=== PATIENT | male | born 1965 | race Caucasian/White ===

== ENCOUNTER 2018-09-04 10:18 | Inpatient (IN) | payer OTHER, MEDICARE ==
[~2018-09-04] VITALS: Ht 167.6 cm; Wt 113.5 kg
[2018-09-04 11:10] LABS: BASOPHILS ABSOLUTE AUTO 0.06 K/mm3 (0.00-0.23); BASOPHILS PERCENT AUTO 1 % (0-2); EOSINOPHILS ABSOLUTE AUTO 0.12 K/mm3 (0.00-0.68); EOSINOPHILS PERCENT AUTO 2 % (0-6); Hematocrit 44.4 % (37.0-53.0); Hemoglobin 14.9 g/dL (13.5-17.5); IMMATURE GRAN ABSOLUTE AUTO 0.04 K/mm3 (0.00-0.10); IMMATURE GRAN PERCENT AUTO 1 % (0-1); LYMPHOCYTES ABSOLUTE AUTO 1.41 K/mm3 (0.84-5.20); LYMPHOCYTES PERCENT AUTO 20 % (21-46); MONOCYTES ABSOLUTE AUTO 0.51 K/mm3 (0.16-1.47); MONOCYTES PERCENT AUTO 7 % (4-13); Mean Corpuscular HGB 28.6 pg (26.0-34.0); Mean Corpuscular HGB Conc 33.6 g/dL (31.5-36.5); Mean Corpuscular Volume 85 fL (80-100); Mean Platelet Volume 9.8 fL (9.1-12.4); NEUTROPHILS ABSOLUTE AUTO 4.95 K/mm3 (1.96-9.15); NEUTROPHILS PERCENT AUTO 70 % (41-73); Platelet Count 172 K/mm3 (150-400); RDW Coefficient Variation 13.7 % (11.7-14.2); RDW Standard Deviation 42.6 fL (35.1-46.3); Red Blood Cell Count 5.21 M/mm3 (4.30-5.90); White Blood Cell Count 7.09 K/mm3 (4.00-11.30)
[2018-09-04 11:23] LABS: Alanine Aminotransfer (ALT/SGP 28 U/L (12-78); Albumin, Blood 3.8 g/dL (3.4-5.0); Albumin/Globulin Ratio 1.2 (0.8-1.8); Alk Phos 117 U/L (50-136); Anion Gap 6 mmol/L (6-16); Aspartate Aminotrans (AST/SGOT 18 U/L (12-37); Bilirubin, Total 0.5 mg/dL (0.1-1.0); Blood Urea Nitrogen 14 mg/dL (8-24); CO2, Blood 26 mmol/L (21-32); Calcium, Blood 8.6 mg/dL (8.5-10.1); Chloride, Blood 105 mmol/L (98-108); Creatinine, Blood 0.93 mg/dL (0.60-1.20); Globulin, Blood 3.3 g/dL (2.2-4.0); Glomerular Filtration Rate >60 (60-); Glucose, Blood 192 mg/dL (70-99); Sodium, Blood 137 mmol/L (136-145); Total Protein, Blood 7.1 g/dL (6.4-8.2); Troponin I 0.235 ng/mL (0.000-0.040)
[2018-09-04] MEDS ORDERED: ASPI325EC PO (12:18)
[2018-09-04] MEDS ORDERED: FISH OIL 1,001000 MG PO (12:19)
[2018-09-04] MEDS ORDERED: TRULICITY1.5 MG/0.5 SC (12:19)
[2018-09-04] MEDS ORDERED: NOVOLOG FL100 UNIT/2 SC (12:20)
[2018-09-04] MEDS ORDERED: ATOR40TA PO (12:27)
[2018-09-04] MEDS ORDERED: NOVOLOG FL100 UNIT/1 SC (12:29)
[2018-09-04] MEDS ORDERED: METO100ER PO (12:30)
[2018-09-04] MEDS ORDERED: OMEP20ER PO (12:31)
[2018-09-04] MEDS ORDERED: TAMS.4ER PO (12:32)
[2018-09-04] MEDS ORDERED: IBUP400 PO (12:33)
[2018-09-04] MEDS ORDERED: INSULANPEN SC (12:43)
[2018-09-04 14:35] LABS: Cholesterol 174 mg/dL (50-200); HDL Cholesterol 29 mg/dL (>39); LDL/HDL RATIO 3.3; Low Density Lipoprotein Chol 97 mg/dL (0-110); Triglycerides 240 mg/dL (30-160); Very Low Density Lipoprot Chol 48 mg/dL (6-32)
[2018-09-04 14:49] LABS: Troponin I 0.892 ng/mL (0.000-0.040)
--- NOTE | 2018-09-04 15:50 | NUR ---
PATIENT ADMIT THE PATIENT WAS ADMITTED TO THE MEDICAL FLOOR, ROOM #332 FROM THE E/R AT 1430. THE PATIENT CAME TO THE FLOOR VIA WHEEL CHAIR. THE PATIENT IS A&O X4, VITALS WNL AND WITH CLEAR, BUT DIMINISHED LUNG SOUNDS. THE PATIENT'S TROPONIN WAS A CRITICAL HIGH VALUE AT 0.892 AND HIS DOCTOR WAS CALLED. THE PATIENT HAD A CARDIO CONSULT WITH DOCTOR MADISON. THE PATIENT IS GOING TO THE FABRICATION LEAD SOON, WILL CONTINUE TO MONITOR.
--- NOTE | 2018-09-04 16:54 | NUR ---
PATIENT TRANSFER THE PATIENT WAS TAKEN TO THE CATH [id number], AND IS BEING TRANSFERRED TO PCU AFTER HIS PROCEDURE. REPORT WAS CALLED TO PCU NURSE KRISTINA AT 1650.
--- NOTE | 2018-09-05 01:55 | NUR ---
ASSUMED CARE OF PATIENT AT APPROXIMATELY 1900 FROM KRISTINA Solorzano RN. PATIENT ARRIVED TO UNIT BEFORE SHIFT CHANGE; S/P ANGIOGRAM; ACCESS TO RIGHT RADIAL AND RIGHT FEMORAL. SITES WITH SOME DRY BLOOD NOTED; NO S/S OF ACTIVE BLEEDING, HEMATOMA OR BRUISING NOTED. DR. MADISON BEDSIDE WITH PATIENT DURING BEDSIDE REPORT; ELEVATED HOB UP TO 10 DEGREES; PATIENT REPORTS TO DR. MADISON THAT HE HAS A "ECHO" OF CHEST PAIN. PATIENT DENIES NUMBNESS, TINGLING, DIZZINESS AND NAUSEA AT START OF SHIFT. CALLED TO ROOM AND PATIENT REPORTS HE HAS NUMBNESS ON TOP OF FEET 30 MINUTES PRIOR TO PATIENT WAS TO AMBULATE. PATIENT REPORTS AFTER HE AMBUALTED HE FELT BETTER AND NUMBNESS WAS GONE. 10CC OF AIR REMOVED FROM TR BAND; ARMBOARD IN PLACE; NO S/S OF BLEEDING OR HEMATOMA NOTED; SOFT AND NONTENDER. PATIENT REPORTS HE HAS SPINAL STIMULATOR BEDSIDE. PATIENT REPORTS HE HAS CHRONIC BACK PAIN THAT IS TOLERABLE AT THIS TIME; REPORTS PAIN MEDIATION DOESNT WORK ON HIM. PIV S/L. PATIENT CURRENTLY RESTING IN BED; CALL LIGHT IN REACH; BED IN LOWEST POSISTION; WILL CONTINUE TO MONITOR AND ASSESS UNTIL END OF SHIFT.
[2018-09-05 04:31] LABS: BASOPHILS ABSOLUTE AUTO 0.01 K/mm3 (0.00-0.23); BASOPHILS PERCENT AUTO 0 % (0-2); EOSINOPHILS PERCENT AUTO 0 % (0-6); Hematocrit 40.1 % (37.0-53.0); Hemoglobin 13.3 g/dL (13.5-17.5); IMMATURE GRAN ABSOLUTE AUTO 0.02 K/mm3 (0.00-0.10); IMMATURE GRAN PERCENT AUTO 0 % (0-1); LYMPHOCYTES PERCENT AUTO 8 % (21-46); MONOCYTES ABSOLUTE AUTO 0.73 K/mm3 (0.16-1.47); MONOCYTES PERCENT AUTO 6 % (4-13); Mean Corpuscular HGB 29.2 pg (26.0-34.0); Mean Corpuscular HGB Conc 33.2 g/dL (31.5-36.5); NEUTROPHILS ABSOLUTE AUTO 10.37 K/mm3 (1.96-9.15); NEUTROPHILS PERCENT AUTO 86 % (41-73); Platelet Count 201 K/mm3 (150-400); RDW Standard Deviation 44.2 fL (35.1-46.3); Red Blood Cell Count 4.56 M/mm3 (4.30-5.90); White Blood Cell Count 12.13 K/mm3 (4.00-11.30)
[2018-09-05 04:32] LABS: Mean Corpuscular Volume 88 fL (80-100)
[2018-09-05 04:51] LABS: Anion Gap 8 mmol/L (6-16); Blood Urea Nitrogen 18 mg/dL (8-24); Bun/Creatinine Ratio 18.1 (12.0-20.0); CO2, Blood 24 mmol/L (21-32); Calcium, Blood 8.6 mg/dL (8.5-10.1); Chloride, Blood 106 mmol/L (98-108); Creatinine, Blood 0.99 mg/dL (0.60-1.20); Glomerular Filtration Rate >60 (60-); Glucose, Blood 260 mg/dL (70-99); Potassium, Blood 3.9 mmol/L (3.5-5.5); Sodium, Blood 138 mmol/L (136-145)
--- NOTE | 2018-09-05 17:19 | NUR ---
SHIFT SUMMARY PT RESTING IN BED AND CHAIR THROUGHOUT THE DAY. VSS. ALERT AND ORIENTED X3. C/O 05/10 HEADACHE PAIN, MEDICATED WITH PRN PAIN MEDS. AMBULATING IN HALLWAYS WITHOUT PROBLEMS. RIGHT WRIST SOFT, NO BLEED OR HEMATOMA, OPSITE DRSG CDI. RIGHT GROIN SOFT, NO BLEED OR HEMATOMA, OPSITE DRSG CDI. LUNG SOUNDS CLEAR, DIMINISHED BASES. NSR RATE 90s ON TELEMETRY. WILL CONTINUE TO MONITOR.
--- NOTE | 2018-09-06 01:14 | NUR ---
ASSUMED CARE OF PATIENT AT APPROXIMATELY 1905 FROM VESNA Solorzano RN. PATIENT ALERT AND ORIENTED X4; INDEPENDENT IN ROOM; AMBULATED IN HALLWAYS SHORTLY AFTER SHIFT CHANGE. ANGIO ACCESS SITES; RIGHT RADIAL AND RIGHT FEMORAL WNL; SITES WITH SOME DRY BLOOD NOTED; NO S/S OF ACTIVE BLEEDING, HEMATOMA OR BRUISING NOTED. PATIENT COMPAINS THAT HE IS BORED. PATIENT REPORTS THAT SINCE APPROXIMATELY 1000 AM HE HAS BEEN HAVING PRESSURE BY SHOULDERS OFF AND ON LASTING ABOUT 10-20 MINUTES; NOT PAINFUL; PATIENT REPORTS HE WOULD WATCH TV AND "REALIZED IT'S GONE"; PATIENT REPORTS THAT HE HAD BEEN HAVING PAIN BETWEEN HIS SHOULDER BLADES OFTEN THAT IS NOW GONE. PATIENT COMPLAINS OF A HEADACHE; REPORTS HEADACHE MOST OF THE DAY; MEDICATED PER EMAR; PATIENT REPORTS TYLENOL HELPED EARLIER IN THE DAY; PATIENT DENIES NUMBNESS, TINGLING, DIZZINESS AND NAUSEA. PATIENT REPORTS HE HAS SPINAL STIMULATOR BEDSIDE. PATIENT REPORTS HE HAS CHRONIC BACK PAIN THAT IS TOLERABLE AT THIS TIME; REPORTS PAIN MEDIATION DOESNT WORK ON HIM. PIV S/L. NSR ON TELE; OXYGEN SATURATION ABOVE 90% ON ROOM AIR; USES CPAP AT NIGHT. PATIENT CURRENTLY RESTING IN BED; CALL LIGHT IN REACH; BED IN LOWEST POSISTION; WILL CONTINUE TO MONITOR AND ASSESS UNTIL END OF SHIFT.
--- NOTE | 2018-09-06 06:19 | NUR ---
NO ACUTE CHANGES TO REPORT. PATIENT COMPLAINED OF HEADACHE THIS MORNING; MEDICATED PER EMAR; PATIENT SLEPT ABOUT EIGHT HOURS. VSS. WILL CONTINUE TO MONITOR AND ASSESS UNTIL END OF SHIFT.
[2018-09-06] MEDS ORDERED: Aspirin EC81 MG PO (10:41)
[2018-09-06] MEDS ORDERED: Isosorbide Mono30 MG PO (10:41)
[2018-09-06] MEDS ORDERED: BRILINTA90 MG PO (10:42)
[2018-09-06] MEDS ORDERED: LOSA50 PO (10:42)
--- NOTE | 2018-09-06 13:17 | NUR ---
DISCHARGE PT EDUCATED ON AND RECEIVED PRINTED DISCHARGE INSTRUCTIONS AND VERBALIZED AN UNDERSTANDING. PT SIGNED CONTRACTS RELATED TO ANTICOAGS, RADIAL, AND FEMORAL SITE CARE. RECEIVED DIETARY INFORMATION. [facility] IN [facility] ER TO FILL NEW MEDICATIONS FOR PT TO PICK AFTER LEAVING HERE. VERIFIED WITH [facility] THAT THEY RECEIV[facility] FAX AND PT WILL HAVE MEDICATIONS FILLED TODAY. IV DC'D. PT GATHERED ALL PERSONAL BELONGINGS AND WAITING FOR RIDE HOME.
== END 2018-09-06 14:01 | disposition home or self-care (01) | DRG 247 ==
LOC: ER 10:18 → MEDS 10:19 → PCU 14:38 → MEDS 16:45 → PCU 17:59
PROVIDERS: Emergency Medicine; ADMIT Internal Medicine
PROC: B2111ZZ Fluoroscopy of Multiple Coronary Arteries using Low Osmolar Contrast (ICD-10-PCS; principal; 2018-09-04)
PROC: 027135Z Dilation of Coronary Artery, Two Arteries with Two Drug-eluting Intraluminal Devices, Percutaneous Approach (ICD-10-PCS; 2018-09-04)
PROC: 4A023N7 Measurement of Cardiac Sampling and Pressure, Left Heart, Percutaneous Approach (ICD-10-PCS; 2018-09-04)
DX: I21.4 Non-ST elevation (NSTEMI) myocardial infarction (principal); Z68.41 Body mass index [BMI] 40.0-44.9, adult; K21.9 Gastro-esophageal reflux disease without esophagitis; N40.0 Benign prostatic hyperplasia without lower urinary tract symptoms; F32.9 Major depressive disorder, single episode, unspecified; Z87.891 Personal history of nicotine dependence; E11.9 Type 2 diabetes mellitus without complications; I10 Essential (primary) hypertension; E78.5 Hyperlipidemia, unspecified; E66.01 Morbid (severe) obesity due to excess calories; Z96.89 Presence of other specified functional implants; Z79.4 Long term (current) use of insulin
CPT/HCPCS: 36415; 71260; 80048; 80053; 80061; 82947; 83036; 84484; 85025; 93005; 93010; 93454; 94660; 94762; 96372; 99152; 99153; 99285-25; A9270; C1725; C1760; C1769; C1874; C1887; C1894; C8929; C9600; C9601; G0378; J1644; J1650; J1815; J2250; J3010; J3246; J7030; Q9957; Q9967

== ENCOUNTER 2018-10-13 21:24 | Emergency (ER) | payer MEDICARE ==
[~2018-10-13] VITALS: Ht 167.6 cm; Wt 113.4 kg
[~2018-10-13 21:24] MED LIST: ASPI325EC PO; ATOR40TA PO; Aspirin EC81 MG PO; BRILINTA90 MG PO; FISH OIL 1,001000 MG PO; IBUP400 PO; INSULANPEN SC; Isosorbide Mono30 MG PO; LOSA50 PO; METO100ER PO; NOVOLOG FL100 UNIT/1 SC; NOVOLOG FL100 UNIT/2 SC; OMEP20ER PO; TAMS.4ER PO; TRULICITY1.5 MG/0.5 SC
[2018-10-13 23:25] LABS: BASOPHILS ABSOLUTE AUTO 0.06 K/mm3 (0.00-0.23); BASOPHILS PERCENT AUTO 1 % (0-2); EOSINOPHILS ABSOLUTE AUTO 0.14 K/mm3 (0.00-0.68); EOSINOPHILS PERCENT AUTO 2 % (0-6); Hematocrit 40.9 % (37.0-53.0); Hemoglobin 13.5 g/dL (13.5-17.5); IMMATURE GRAN ABSOLUTE AUTO 0.03 K/mm3 (0.00-0.10); IMMATURE GRAN PERCENT AUTO 0 % (0-1); LYMPHOCYTES ABSOLUTE AUTO 1.97 K/mm3 (0.84-5.20); LYMPHOCYTES PERCENT AUTO 24 % (21-46); MONOCYTES ABSOLUTE AUTO 0.76 K/mm3 (0.16-1.47); MONOCYTES PERCENT AUTO 9 % (4-13); Mean Corpuscular HGB 28.6 pg (26.0-34.0); Mean Corpuscular Volume 87 fL (80-100); NEUTROPHILS ABSOLUTE AUTO 5.12 K/mm3 (1.96-9.15); NEUTROPHILS PERCENT AUTO 63 % (41-73); Platelet Count 207 K/mm3 (150-400); RDW Coefficient Variation 14.4 % (11.7-14.2); RDW Standard Deviation 45.8 fL (35.1-46.3); Red Blood Cell Count 4.72 M/mm3 (4.30-5.90); White Blood Cell Count 8.08 K/mm3 (4.00-11.30)
[2018-10-13 23:41] LABS: Alanine Aminotransfer (ALT/SGP 34 U/L (12-78); Albumin, Blood 3.9 g/dL (3.4-5.0); Albumin/Globulin Ratio 1.1 (0.8-1.8); Alk Phos 120 U/L (50-136); Anion Gap 10 mmol/L (6-16); Aspartate Aminotrans (AST/SGOT 16 U/L (12-37); Bilirubin, Total 0.3 mg/dL (0.1-1.0); Blood Urea Nitrogen 21 mg/dL (8-24); Bun/Creatinine Ratio 19.4 (12.0-20.0); CO2, Blood 22 mmol/L (21-32); Calcium, Blood 8.6 mg/dL (8.5-10.1); Chloride, Blood 106 mmol/L (98-108); Creatinine, Blood 1.08 mg/dL (0.60-1.20); Globulin, Blood 3.6 g/dL (2.2-4.0); Glomerular Filtration Rate >60 (60-); Glucose, Blood 276 mg/dL (70-99); Potassium, Blood 3.8 mmol/L (3.5-5.5); Sodium, Blood 138 mmol/L (136-145); Total Protein, Blood 7.5 g/dL (6.4-8.2); Troponin I <0.015 ng/mL (0.000-0.040)
[2018-10-14] MEDS ORDERED: METF500 PO (01:24)
== END 2018-10-14 02:34 | disposition home or self-care (01) ==
LOC: ER 21:24
PROVIDERS: Emergency Medicine
DX: R07.9 Chest pain, unspecified (principal); Z88.8 Allergy status to other drugs, medicaments and biological substances; Z79.899 Other long term (current) drug therapy; Z79.4 Long term (current) use of insulin; Z79.82 Long term (current) use of aspirin; E11.9 Type 2 diabetes mellitus without complications; Z87.891 Personal history of nicotine dependence
CPT/HCPCS: 36415; 71046; 80053; 83690; 84484; 85025; 93005; 93010; 99285-25

== ENCOUNTER 2018-12-07 13:18 | Observation (INO) | payer OTHER ==
[~2018-12-07] VITALS: Ht 167.6 cm; Wt 111.8 kg
[~2018-12-07 13:18] MED LIST changes: +METF500 PO
[2018-12-07 13:58] LABS: BASOPHILS ABSOLUTE AUTO 0.07 K/mm3 (0.00-0.23); BASOPHILS PERCENT AUTO 1 % (0-2); EOSINOPHILS ABSOLUTE AUTO 0.24 K/mm3 (0.00-0.68); EOSINOPHILS PERCENT AUTO 3 % (0-6); Hematocrit 43.9 % (37.0-53.0); Hemoglobin 14.4 g/dL (13.5-17.5); IMMATURE GRAN ABSOLUTE AUTO 0.03 K/mm3 (0.00-0.10); IMMATURE GRAN PERCENT AUTO 0 % (0-1); LYMPHOCYTES ABSOLUTE AUTO 1.81 K/mm3 (0.84-5.20); LYMPHOCYTES PERCENT AUTO 20 % (21-46); MONOCYTES ABSOLUTE AUTO 0.84 K/mm3 (0.16-1.47); MONOCYTES PERCENT AUTO 9 % (4-13); Mean Corpuscular HGB 28.5 pg (26.0-34.0); Mean Corpuscular HGB Conc 32.8 g/dL (31.5-36.5); Mean Corpuscular Volume 87 fL (80-100); Mean Platelet Volume 9.6 fL (9.1-12.4); NEUTROPHILS ABSOLUTE AUTO 6.02 K/mm3 (1.96-9.15); NEUTROPHILS PERCENT AUTO 67 % (41-73); Platelet Count 191 K/mm3 (150-400); RDW Coefficient Variation 14.2 % (11.7-14.2); RDW Standard Deviation 44.9 fL (35.1-46.3); Red Blood Cell Count 5.06 M/mm3 (4.30-5.90); White Blood Cell Count 9.01 K/mm3 (4.00-11.30)
[2018-12-07 14:25] LABS: Alanine Aminotransfer (ALT/SGP 28 U/L (12-78); Albumin, Blood 3.7 g/dL (3.4-5.0); Albumin/Globulin Ratio 0.9 (0.8-1.8); Alk Phos 133 U/L (50-136); Anion Gap 7 mmol/L (6-16); Aspartate Aminotrans (AST/SGOT 19 U/L (12-37); Bilirubin, Total 0.5 mg/dL (0.1-1.0); Blood Urea Nitrogen 16 mg/dL (8-24); Bun/Creatinine Ratio 13.4 (12.0-20.0); CO2, Blood 25 mmol/L (21-32); Calcium, Blood 9.3 mg/dL (8.5-10.1); Chloride, Blood 104 mmol/L (98-108); Creatinine, Blood 1.19 mg/dL (0.60-1.20); Globulin, Blood 3.9 g/dL (2.2-4.0); Glomerular Filtration Rate >60 (60-); Glucose, Blood 253 mg/dL (70-99); Potassium, Blood 4.2 mmol/L (3.5-5.5); Sodium, Blood 136 mmol/L (136-145); Total Protein, Blood 7.6 g/dL (6.4-8.2); Troponin I <0.015 ng/mL (0.000-0.040)
[2018-12-07] MEDS ORDERED: TICA90TA PO (15:09)
[2018-12-07] MEDS ORDERED: AMLO10 PO (15:10)
[2018-12-07] MEDS ORDERED: Zantac150 MG PO (15:11)
[2018-12-07] MEDS ORDERED: NEBI10 (19:50)
--- NOTE | 2018-12-07 20:00 | NUR ---
ADMIT PT ARRIVES TO [facility] FROM ER VIA [facility] AT APPROXIMATELY 1945. PT IS AOX4. VSS. AMBULATES INDEPENDENTLY FROM [facility] TO HOSPITAL BED. PT DENIES CHEST PAIN AT THIS TIME. REPORTS THAT HE HAS HAD INERMITTENT PAIN TO L UPPER CHEST AREA EITHER DIRECTLY ABOVE THE NIPPLE OR APPROXIMATELY 3 INCHES LATERALLY FROM THAT AREA. PT REPORTS THAT THE PAIN FEELS LIKE SMALL "TWINGES THAT LAST FOR A FEW AT A TIME AND THEN GO AWAY AFTER A FEW MINUTES". PT REPORTS THAT THIS PAIN HAS BEEN HAPPENING ON AND OFF SINCE STENT PLACEMENT IN AUGUST, PAIN DOES NOT RADIATE ANYWHERE AND NOTHING MAKES IT BETTER OR WORSE PER PATIENT REPORT- STATES THAT HE TOOK 3 SL NITRO AT HOME PRIOR TO CALLING AMBULANCE WITH NO CHANGE TO PAIN. INITIAL TROPONIN IS NEGATIVE. AWAITING REPEAT LAB DRAW. PT ORIENTED TO ROOM AND CALL LIGHT SYSTEM. EDUCATED ON CALLING FOR ASSISTANCE. WILL CONTINUE WITH ADMISSION AND ASSESSMENT. BED IN LOW POSITION,CALL LIGHT IN REACH.
--- NOTE | 2018-12-07 23:02 | NUR ---
PROVIDER CONTACTED PT REQUESTING HOME MEDICATION, BYSTOLIC. PT STATES THAT PROVIDER IN ED ASKED FAMILY TO BRING IN HOME MEDICATION. PROVIDER CONTACTED AND ORDERS RECEIVED FOR HOME DOSE TO RESTART NOW- PROVIDER STATES THAT THEY WILL INPUT ORDER. WILL SEND MEDICATION TO PHARMACY FOR VERIFICATION.
--- NOTE | 2018-12-08 01:30 | NUR ---
PROVIDER CONTACTED PT CONTINUES TO REPORT HEADACHE PAIN. REFUSED SECONDARY MEDICATION, FENTANYL. PROVIDER CONTACTED AND ORDERS RECEIVED TO CHANGE ORDERS TO TYLENOL FROM Q6 TO Q4. WILL INPUT AND ADMINISTER NEEDED.
--- NOTE | 2018-12-08 06:08 | NUR ---
SHIFT SUMMARY PT HAS REMAINED AOX4 THROUGHOUT SHIFT. VSS. PLEASANT AND COOPERATIVE WITH CARE. PT HAS RESTED THROUGHOUT MUCH OF THE NIGHT WITH CPAP IN PLACE. O2 SATS HAVE REMAINED >90% ON RA OR CPAP WITH NO O2 BLEED IN. DENIES DYSPNEA. PT REPORTED THREE EPISODES OF "TWINGING CHEST PAIN" THAT LASTED LESS THAN A MINUTE A PIECE AND STOPPED ON THEIR OWN- DESCRIBES PAIN ALMOST ELECTRICAL IMPULSE FEELING. NO CHANGES NOTED TO TELEMETRY EVEN THROUGH CHEST PAIN EVENTS. PT MEDICATED FOR HEADACHE PAIN ONCE THAT DECREASED WITH ORDERED MEDICATIONS, BUT DID NOT GO AWAY. PT REFUSED SECONDARY PAIN MEDICATION WHEN OFFERED, STATES THAT "IT DOES NOT WORK FOR HIM". PT CONSISTANTLY TALKS OVER STAFF WHEN ATTEMPTING TO PROVIDE EDUCATION AND DOES NOT APPEAR TO GRASP FULL UNDERSTANDING OF CURRENT CONDITION OR RATIONALLE FOR ADMISSION. CARDIOLOGY CONSULT CALLED THIS AM TO ANSWERING SERVICE. NO OTHER CHANGES NOTED FROM INITIAL ASSESSMENT. WILL CONITNUE TO MONITOR AND REPORT TO ONCOMING SHIFT RN. BED IN LOW POSITION, CALL LIGHT IN REACH.
[2018-12-08] MEDS ORDERED: Tylenol325 MG PO (13:15)
[2018-12-08] MEDS ORDERED: NITR.4SL SL (13:16)
--- NOTE | 2018-12-08 14:45 | NUR ---
SHIFT SUMMARY PT ALERT AND ORIENTED. VS STABLE. PER CARDIOLOGY THIS AM PT OK TO DISCHARGE. IV REMOVED. [facility] ALL QUESTIONS ANSWERED. DISCHARGE INSTRUCTIONS PROVIDED. NO NEW MEDICATIONS. PT TAKEN OUT BY WHEELCHAIR.
== END 2018-12-08 14:46 | disposition home or self-care (01) ==
LOC: ER 13:18 → MEDS 13:19 → PCU 13:19 → MEDS 19:43 → PCU 19:43
PROVIDERS: Emergency Medicine; ADMIT Family Medicine
DX: R07.89 Other chest pain (principal); I25.10 Atherosclerotic heart disease of native coronary artery without angina pectoris; I25.2 Old myocardial infarction; E11.9 Type 2 diabetes mellitus without complications; I10 Essential (primary) hypertension; E78.5 Hyperlipidemia, unspecified; G47.33 Obstructive sleep apnea (adult) (pediatric); K21.9 Gastro-esophageal reflux disease without esophagitis; N40.0 Benign prostatic hyperplasia without lower urinary tract symptoms; F32.9 Major depressive disorder, single episode, unspecified; E66.01 Morbid (severe) obesity due to excess calories; Z90.49 Acquired absence of other specified parts of digestive tract; Z87.19 Personal history of other diseases of the digestive system; Z98.890 Other specified postprocedural states; Z79.82 Long term (current) use of aspirin; Z95.5 Presence of coronary angioplasty implant and graft; Z99.89 Dependence on other enabling machines and devices; Z79.899 Other long term (current) drug therapy; Z88.5 Allergy status to narcotic agent; Z88.8 Allergy status to other drugs, medicaments and biological substances; Z87.891 Personal history of nicotine dependence; Z68.41 Body mass index [BMI] 40.0-44.9, adult
CPT/HCPCS: 36415; 71046; 80053; 82947; 83690; 84484; 85025; 93005; 93010; 94660; 94762; 96372; 99285-25; A9270; G0378; J1650; J1815

== ENCOUNTER 2020-01-27 17:12 | Observation (INO) | payer OTHER, MEDICARE ==
[~2020-01-27] VITALS: Ht 167.6 cm; Wt 108.0 kg
[~2020-01-27 17:12] MED LIST changes: +AMLO10 PO; +BASAGLAR K100 UNIT/1 SC; +DOXY100 PO; -INSULANPEN SC; +NEBI10; +NITR.4SL SL; -NOVOLOG FL100 UNIT/1 SC; +NOVOLOG FL100 UNIT/3 SC; +TICA90TA PO; +Tylenol325 MG PO; +Zantac150 MG PO
[2020-01-27 17:47] LABS: BASOPHILS ABSOLUTE AUTO 0.06 K/mm3 (0.00-0.23); BASOPHILS PERCENT AUTO 1 % (0-2); EOSINOPHILS ABSOLUTE AUTO 0.15 K/mm3 (0.00-0.68); EOSINOPHILS PERCENT AUTO 3 % (0-6); Hematocrit 40.4 % (37.0-53.0); Hemoglobin 13.2 g/dL (13.5-17.5); IMMATURE GRAN ABSOLUTE AUTO 0.01 K/mm3 (0.00-0.10); IMMATURE GRAN PERCENT AUTO 0 % (0-1); LYMPHOCYTES ABSOLUTE AUTO 1.64 K/mm3 (0.84-5.20); LYMPHOCYTES PERCENT AUTO 28 % (21-46); MONOCYTES ABSOLUTE AUTO 0.55 K/mm3 (0.16-1.47); MONOCYTES PERCENT AUTO 10 % (4-13); Mean Corpuscular HGB 28.4 pg (26.0-34.0); Mean Corpuscular HGB Conc 32.7 g/dL (31.5-36.5); Mean Corpuscular Volume 87 fL (80-100); Mean Platelet Volume 9.5 fL (9.1-12.4); NEUTROPHILS ABSOLUTE AUTO 3.39 K/mm3 (1.96-9.15); NEUTROPHILS PERCENT AUTO 58 % (41-73); Platelet Count 199 K/mm3 (150-400); RDW Coefficient Variation 13.8 % (11.7-14.2); RDW Standard Deviation 43.7 fL (35.1-46.3); Red Blood Cell Count 4.64 M/mm3 (4.30-5.90)
[2020-01-27 18:06] LABS: Alanine Aminotransfer (ALT/SGP 39 U/L (12-78); Albumin, Blood 3.8 g/dL (3.4-5.0); Albumin/Globulin Ratio 1.1 (0.8-1.8); Alk Phos 127 U/L (50-136); Anion Gap 7 mmol/L (6-16); Aspartate Aminotrans (AST/SGOT 21 U/L (12-37); Bilirubin, Total 0.4 mg/dL (0.1-1.0); Blood Urea Nitrogen 16 mg/dL (8-24); Bun/Creatinine Ratio 13.1 (12.0-20.0); CO2, Blood 24 mmol/L (21-32); Calcium, Blood 8.7 mg/dL (8.5-10.1); Chloride, Blood 102 mmol/L (98-108); Creatinine, Blood 1.22 mg/dL (0.60-1.20); Globulin, Blood 3.4 g/dL (2.2-4.0); Glomerular Filtration Rate >60 (60-); Glucose, Blood 527 mg/dL (70-99); Potassium, Blood 4.1 mmol/L (3.5-5.5); Sodium, Blood 133 mmol/L (136-145); Total Protein, Blood 7.2 g/dL (6.4-8.2); Troponin I <0.015 ng/mL (0.000-0.040)
--- NOTE | 2020-01-27 23:59 | NUR ---
PATIENT IS A NEW ADMIT FROM THE ED. SBA TRANSFER FROM [facility] TO BED. IV FLUIDS FINISHED INFUSING FROM THE ED. AXOX 4 AND NPO AFTER MIDNIGHT FOR POSSIBLE STRESS TEST IN AM. DENIES CHEST PAIN AND N/V. RT IN ROOM AND PLACED PATIENT ON 2L O2 NC. WAS STATING 87% ON RA AND NOW 98%. TELEMETRY PLACED AND TECH REPORTS NSR 78. USING URINAL AT BEDSIDE. PATIENT ORIENTED TO ROOM AND CALL LIGHT SYSTEM. REPORTS HAD FLU VACCINE LAST MONTH. WILL CONTINUE TO MONITOR.
--- NOTE | 2020-01-28 00:05 | NUR ---
RT IN ROOM TO SETUP CPAP. STATING 90-93% ON CONTINUOUS PULSE OXIMETRY. TOOK MEDICATION WHOLE WITH WATER. RESTING IN BED WATCHING TV. CALL LIGHT IN REACH.
[2020-01-28 02:15] LABS: Hematocrit 39.9 % (37.0-53.0); Hemoglobin 13.2 g/dL (13.5-17.5); Mean Corpuscular HGB 28.4 pg (26.0-34.0); Mean Corpuscular HGB Conc 33.1 g/dL (31.5-36.5); Mean Corpuscular Volume 86 fL (80-100); Mean Platelet Volume 8.9 fL (9.1-12.4); Platelet Count 175 K/mm3 (150-400); RDW Coefficient Variation 13.7 % (11.7-14.2); RDW Standard Deviation 43.1 fL (35.1-46.3); Red Blood Cell Count 4.64 M/mm3 (4.30-5.90)
[2020-01-28 02:34] LABS: Anion Gap 6 mmol/L (6-16); Blood Urea Nitrogen 16 mg/dL (8-24); Bun/Creatinine Ratio 16.2 (12.0-20.0); CHOL/HDL RATIO 9.4; CO2, Blood 26 mmol/L (21-32); CPK Creatine Kinase 92 U/L (39-308); Calcium, Blood 8.3 mg/dL (8.5-10.1); Chloride, Blood 104 mmol/L (98-108); Cholesterol 253 mg/dL (50-200); Creatine Kinase MB 2.2 ng/mL (0.0-3.6); Creatine Kinase MB Index 2.4 (0.0-4.0); Creatinine, Blood 0.99 mg/dL (0.60-1.20); Glomerular Filtration Rate >60 (60-); Glucose, Blood 316 mg/dL (70-99); HDL Cholesterol 27 mg/dL (>39); LDL/HDL RATIO Unable to Calculate; Low Density Lipoprotein Chol Unable to Calculate mg/dL (0-110); Potassium, Blood 3.5 mmol/L (3.5-5.5); Sodium, Blood 136 mmol/L (136-145); Triglycerides 783 mg/dL (30-160); Troponin I 0.091 ng/mL (0.000-0.040); Very Low Density Lipoprot Chol Unable to Calculate mg/dL (6-32)
[2020-01-28 02:42] LABS: Creatine Kinase MB 2.3 ng/mL (0.0-3.6); Creatine Kinase MB Index 2.5 (0.0-4.0); Troponin I 0.089 ng/mL (0.000-0.040)
--- NOTE | 2020-01-28 03:18 | NUR ---
SHIFT SUMMARY PATIENT HAD NO ACUTE CHANGES OBSERVED. DENIES CHEST PAIN AND N/V. RT IN ROOM AND PUT PATIENT ON 2L O2 NC AFTER STATING 88% ON RA. AXO X 4 AND INDEPENDENT IN ROOM. PATIENT REPORTS HE FORGOT TO TAKE HIS INSULIN AND ED RN REPORTS CBG 527 ON ADMIT AND 437 ON TRANSFER. PATIENT CBG 316 AFTER SCHEDULE HUMALOG AND SEMGLEE STARTED. PIV REMAINS INTACT. MASTER PRINTER REPORTS NSR 78. RT BACK IN ROOM TO SETUP CPAP AND CONTINUOUS PULSE OXIMETRY. PATIENT STATING 90-93% O2. PATIENT REPORTS HE HAS STIMULATOR IN HIS BACK FOR PAIN RELIEF. NPO FOR POSSIBLE STRESS TEST IN MORNING. VSS/AFEBRILE. CALL LIGHT IN REACH. BED IN LOWEST POSITION. WILL CONTINUE TO MONITOR UNTIL DAY SHIFT NURSE ASSUMES CARE.
--- NOTE | 2020-01-28 10:16 | NUR ---
CALLED DR NUNEZ FOR BG COVERAGE FOR THIS PT THIS AM; PT GIVEN SHORT ACTING AND HOLD OFF THE LONG ACTING INSULIN PER . STILL AWAITS IF PT WILL HAVE STRESS TEST TODAY; TROPONIN ELAVATED. PT ALSO REPORTED CP OF 4/10; MILD PAIN ON L ARM AND CHEST; PT NSR @70S. PT REPORTED CP THAT COMES AND GO; AWARE AND WILL COORDINATE WITH CONDITIONING COACH THIS AM.
[2020-01-28 10:56] LABS: Creatine Kinase MB 2.3 ng/mL (0.0-3.6); Creatine Kinase MB Index 2.2 (0.0-4.0); Troponin I 0.267 ng/mL (0.000-0.040)
--- NOTE | 2020-01-28 12:40 | NUR ---
Echocardiogram completed.
--- NOTE | 2020-01-28 17:25 | NUR ---
SHIFT SUMMARY PT AOX4; CALLS APPROPRIATELY. PT STARTED ON STRESS TEST TODAY 01/27 AND TOMORROW; NPO AT MIDNIGHT AND NO CAFFEINE AFTER 8PM. PT WILL HAVE A CARDIOLOGY CONSULT TOMORROW AFTER THE TEST DUE TO ELAVATED TROPONIN. PT C/O CP OF 06/10 THAT COMES AND GO SINCE ADMISSION; NSR @70S; DR BARRAZA, AND AWAITS FOR PLAN WHEN THE PT SEE THE SAFETY COMPANION TOMORROW. BED IS IN THE LOWEST POSITION AND CALL LIGHTS WITHIN REACH.
[2020-01-29 04:36] LABS: BASOPHILS ABSOLUTE AUTO 0.06 K/mm3 (0.00-0.23); BASOPHILS PERCENT AUTO 1 % (0-2); EOSINOPHILS ABSOLUTE AUTO 0.14 K/mm3 (0.00-0.68); EOSINOPHILS PERCENT AUTO 3 % (0-6); Hematocrit 42.4 % (37.0-53.0); Hemoglobin 14.3 g/dL (13.5-17.5); IMMATURE GRAN ABSOLUTE AUTO 0.02 K/mm3 (0.00-0.10); IMMATURE GRAN PERCENT AUTO 0 % (0-1); LYMPHOCYTES ABSOLUTE AUTO 1.63 K/mm3 (0.84-5.20); LYMPHOCYTES PERCENT AUTO 30 % (21-46); MONOCYTES ABSOLUTE AUTO 0.64 K/mm3 (0.16-1.47); MONOCYTES PERCENT AUTO 12 % (4-13); Mean Corpuscular HGB 28.8 pg (26.0-34.0); Mean Corpuscular HGB Conc 33.7 g/dL (31.5-36.5); Mean Corpuscular Volume 85 fL (80-100); Mean Platelet Volume 8.9 fL (9.1-12.4); NEUTROPHILS ABSOLUTE AUTO 3.01 K/mm3 (1.96-9.15); NEUTROPHILS PERCENT AUTO 55 % (41-73); Platelet Count 169 K/mm3 (150-400); RDW Coefficient Variation 13.6 % (11.7-14.2); RDW Standard Deviation 41.8 fL (35.1-46.3); Red Blood Cell Count 4.97 M/mm3 (4.30-5.90)
[2020-01-29 04:52] LABS: Anion Gap 5 mmol/L (6-16); Blood Urea Nitrogen 15 mg/dL (8-24); Bun/Creatinine Ratio 18.4 (12.0-20.0); CO2, Blood 27 mmol/L (21-32); Calcium, Blood 8.9 mg/dL (8.5-10.1); Chloride, Blood 104 mmol/L (98-108); Creatinine, Blood 0.81 mg/dL (0.60-1.20); Glomerular Filtration Rate >60 (60-); Glucose, Blood 214 mg/dL (70-99); Potassium, Blood 3.5 mmol/L (3.5-5.5); Sodium, Blood 136 mmol/L (136-145)
--- NOTE | 2020-01-29 05:21 | NUR ---
PATIENT HAS BEEN AWAKE MOST OF THE NIGHT. NO FURTHER COMPLAINTS OF CHEST PAIN. NPO SINCE MIDNIGHT, NO CAFFINE SINCE 2200. NO ACUTE CHANGES. CALL LIGHT IN REACH. INDEPENDENT IN ROOM.
--- NOTE | 2020-01-29 13:58 | NUR ---
PATIENT BEGAN TO COMPLAIN OF SOME CHEST PAIN JUST PRIOR TO 1300. ADMINISTERED SCHEDULED IMDUR AND PRN NITRO. THE NITRO WAS EFFECTIVE. 18G IV PLACED TO IN PREP FOR SKATING RINK ICE MAKER PROCEDURE AT 1730 TONIGHT. PATIENT NPO.
--- NOTE | 2020-01-29 15:24 | NUR ---
PATIENT IS PLEASANT AND COOPERATIVE WITH STAFF. VITALS STABLE. COMPLAINED OF CHEST PAIN ONCE THIS SHIFT WITH EFFECTIVE RESULTS FROM NITRO. PATIENT COMPLETED STRESS TEST HOWEVER NOW IS SCHEDULED FOR CATHLAB TONIGHT: ANGIOGRAM. MEDS TAKEN WITHOUT PROBLEM. PATIENT IN ROOM SHOWERING AT THIS TIME. WILL CONTINUE TO MONITOR AND PROVIDE CARE NEEDED.
[2020-01-29 18:00] LABS: Influenza A, PCR Negative (NEGATIVE); Influenza B, PCR Negative (NEGATIVE); Resp Syncytial Virus, PCR Negative (NEGATIVE); SARS-Cov-2 (COVID-19) PCR, MMC Negative (NEGATIVE)
--- NOTE | 2020-01-29 18:20 | NUR ---
PATIENT TAKEN DOWN TO THE TECHNICAL SERVICES MANAGER AT 1810. I TOOK ALL OF PATIENTS' BELONGINGS DOWN TO PCU AND GAVE REPORT TO LILIBETH REAL ESTATE JOB TITLES. PATIENT TO BE TRANSFERED TO PCU 12 AFTER THE PROCEDURE IN TECHNICAL SERVICES MANAGER.
--- NOTE | 2020-01-30 00:40 | NUR ---
TR BAND PT TO UNIT FROM AIRCRAFT DESIGN ENGINEER WITH 13ML IN TR BAND REPORTED BY AIRCRAFT DESIGN ENGINEER RN. DISTAL PULSES PALPABLE. CAP REFILL <3SEC. PT DENIES NUMT. 2200 2 ML AIR PULLED. 2220 2ML AIR 2255 4ML AIR 2330 4ML AIR 0040 TR BAND COMPLETELY REMOVED. SITE CLEANED AND OPSITE PLACED. ARMBOARD IN PLAce. site presents without hematoma, pain, excess redness. PULSES STRONG DISTALLY.
--- NOTE | 2020-01-30 05:09 | NUR ---
END OF SHIFT SUMMARY NO ACUTE CHANGES THIS SHIFT. TR BAND SUCCESFULLY RECOVERED W/OUT INCIDENT. PT DENYING CP POST TRANSFER FROM GIS GEOGRAPHER. ENIES SOB. PT HAS BEEN RESTING IN BED, CPAP WITH 2L BLEEDIN. 1L NS INFUSED PER EMAR. WILL CONTINUE TO MONITOR UNTIL SHIFT CHANGE.
--- NOTE | 2020-01-30 07:34 | NUR ---
ASSUMED CARE: DR CORREA WAS AT BEDSIDE WITH PT, STATES HE IS ABLE TO DC FROM CARDIOLOGY STAND POINT WITH BRILINTA AND ISOSORBIDE ORDERS AND FOLLOW UP WITH DR APPLE IN 1-2 WEEKS. PT'S LEFT RADIAL SITE CLEAN AND DRY. NO SIGN OF BLEEDING OR HEMATOMA. PT DENIES NEEDS AT THIS TIME.
[2020-01-30] MEDS ORDERED: Isosorbide Mono30 MG PO (09:37)
--- NOTE | 2020-01-30 10:35 | NUR ---
PT'S IV DC'D WNL. INSTRUCTIONS GIVEN ABOUT FOLLOW UP APPOINTMENTS AND MEDICATIONS. PT GIVEN INSTRUCTIONS ABOUT RADIAL SITE CARE. SITE WAS CLEAN AND IN TACT WITH NO BRUISING OR BLEEDING NOTED. NO ACUTE NEEDS OR CONCERNS UPON DISCHARGE
== END 2020-01-30 12:12 | disposition home or self-care (01) ==
LOC: ER 17:12 → MEDS 17:13 → PCU 01-29 19:49
PROVIDERS: Emergency Medicine; Internal Medicine; Internal Medicine Cardiovascular Disease; ADMIT Internal Medicine
PROC: 027034Z Dilation of Coronary Artery, One Artery with Drug-eluting Intraluminal Device, Percutaneous Approach (ICD-10-PCS; principal; 2020-01-29)
DX: I25.110 Atherosclerotic heart disease of native coronary artery with unstable angina pectoris (principal); I25.2 Old myocardial infarction; I10 Essential (primary) hypertension; E78.5 Hyperlipidemia, unspecified; K21.9 Gastro-esophageal reflux disease without esophagitis; F32.9 Major depressive disorder, single episode, unspecified; F41.9 Anxiety disorder, unspecified; N40.0 Benign prostatic hyperplasia without lower urinary tract symptoms; E11.65 Type 2 diabetes mellitus with hyperglycemia; E87.1 Hypo-osmolality and hyponatremia; E66.2 Morbid (severe) obesity with alveolar hypoventilation; Z88.8 Allergy status to other drugs, medicaments and biological substances; Z68.38 Body mass index [BMI] 38.0-38.9, adult; Z79.4 Long term (current) use of insulin; Z79.82 Long term (current) use of aspirin; Z79.899 Other long term (current) drug therapy; Z95.5 Presence of coronary angioplasty implant and graft; Z87.891 Personal history of nicotine dependence; Z23 Encounter for immunization
CPT/HCPCS: 0241U; 36415; 71046; 76937; 78452; 80048; 80053; 80061; 82550; 82553; 82565; 82947; 83036; 83690; 83880; 84484; 85025; 85027; 85347; 85379; 92920; 92921; 92978; 93005; 93010; 93017; 93306; 93458; 93571; 94660; 94762; 96360; 96361; 96372; 99152; 99153; 99285-25; A9270; A9270-GY; A9500; C1725; C1753; C1769; C1874; C1887; C1894; C9600; G0378; J0153; J0280; J1644; J1650; J2250; J2405; J2785; J3010; J7030; J7050; Q0163; Q9967

== ENCOUNTER 2020-03-30 13:48 | Observation (INO) | payer OTHER, MEDICARE ==
[~2020-03-30] VITALS: Ht 167.6 cm; Wt 114.0 kg
[~2020-03-30 13:48] MED LIST changes: -AMLO10 PO; -ATOR40TA PO; -Aspirin EC81 MG PO; -BASAGLAR K100 UNIT/1 SC; -BRILINTA90 MG PO; -NEBI10; -NITR.4SL SL; -NOVOLOG FL100 UNIT/3 SC; -OMEP20ER PO; -TAMS.4ER PO
[2020-03-30 14:22] LABS: BASOPHILS ABSOLUTE AUTO 0.05 K/mm3 (0.00-0.23); BASOPHILS PERCENT AUTO 1 % (0-2); EOSINOPHILS ABSOLUTE AUTO 0.48 K/mm3 (0.00-0.68); EOSINOPHILS PERCENT AUTO 7 % (0-6); IMMATURE GRAN ABSOLUTE AUTO 0.02 K/mm3 (0.00-0.10); IMMATURE GRAN PERCENT AUTO 0 % (0-1); LYMPHOCYTES ABSOLUTE AUTO 1.53 K/mm3 (0.84-5.20); LYMPHOCYTES PERCENT AUTO 22 % (21-46); MONOCYTES ABSOLUTE AUTO 0.62 K/mm3 (0.16-1.47); MONOCYTES PERCENT AUTO 9 % (4-13); Mean Corpuscular HGB 28.5 pg (26.0-34.0); Mean Corpuscular HGB Conc 32.6 g/dL (31.5-36.5); Mean Corpuscular Volume 87 fL (80-100); Mean Platelet Volume 9.7 fL (9.1-12.4); NEUTROPHILS ABSOLUTE AUTO 4.37 K/mm3 (1.96-9.15); NEUTROPHILS PERCENT AUTO 62 % (41-73); Platelet Count 210 K/mm3 (150-400); RDW Coefficient Variation 14.2 % (11.7-14.2); RDW Standard Deviation 45.3 fL (35.1-46.3); Red Blood Cell Count 4.92 M/mm3 (4.30-5.90); White Blood Cell Count 7.07 K/mm3 (4.00-11.30)
[2020-03-30 14:42] LABS: Alanine Aminotransfer (ALT/SGP 31 U/L (12-78); Albumin, Blood 3.7 g/dL (3.4-5.0); Albumin/Globulin Ratio 1.1 (0.8-1.8); Alk Phos 107 U/L (50-136); Anion Gap 7 mmol/L (6-16); Aspartate Aminotrans (AST/SGOT 18 U/L (12-37); Bilirubin, Total 0.5 mg/dL (0.1-1.0); Blood Urea Nitrogen 14 mg/dL (8-24); CO2, Blood 22 mmol/L (21-32); Calcium, Blood 8.6 mg/dL (8.5-10.1); Chloride, Blood 108 mmol/L (98-108); Globulin, Blood 3.4 g/dL (2.2-4.0); Glomerular Filtration Rate >60 (60-); Glucose, Blood 358 mg/dL (70-99); Potassium, Blood 4.5 mmol/L (3.5-5.5); Sodium, Blood 137 mmol/L (136-145); Total Protein, Blood 7.1 g/dL (6.4-8.2); Troponin I <0.015 ng/mL (0.000-0.040)
[2020-03-30 15:04] LABS: Influenza A, PCR Negative (NEGATIVE); Influenza B, PCR Negative (NEGATIVE); Resp Syncytial Virus, PCR Negative (NEGATIVE); SARS-Cov-2 (COVID-19) PCR, MMC Negative (NEGATIVE)
[2020-03-30] MEDS ORDERED: METF500 PO (19:06)
[2020-03-30] MEDS ORDERED: Vitamin B Comple1 EA PO (19:07)
--- NOTE | 2020-03-31 04:23 | NUR ---
[facility] DIRECTOR SUMMARY A/OX4, IND IN ROOM. C/O DULL CHEST PAIN X1, GIVEN NITRO WITH RELIEF. PT APPEARS TO VERY ANXIOUS AT TIMES, PRN XANAX ORDERED AND GIVEN. DENIES N/V/D AT THIS TIME. VSS. NO ACUTE CHANGES NOTED. BED IN LOWEST POSITION WITH CALL LIGHT IN REACH. WILL CONTINUE TO MONITOR AND REPORT TO ONCOMING RN.
[2020-03-31 09:04] LABS: BASOPHILS ABSOLUTE AUTO 0.05 K/mm3 (0.00-0.23); BASOPHILS PERCENT AUTO 1 % (0-2); EOSINOPHILS ABSOLUTE AUTO 0.47 K/mm3 (0.00-0.68); EOSINOPHILS PERCENT AUTO 7 % (0-6); Hematocrit 41.7 % (37.0-53.0); Hemoglobin 13.5 g/dL (13.5-17.5); IMMATURE GRAN ABSOLUTE AUTO 0.02 K/mm3 (0.00-0.10); IMMATURE GRAN PERCENT AUTO 0 % (0-1); LYMPHOCYTES ABSOLUTE AUTO 1.66 K/mm3 (0.84-5.20); LYMPHOCYTES PERCENT AUTO 25 % (21-46); MONOCYTES ABSOLUTE AUTO 0.52 K/mm3 (0.16-1.47); MONOCYTES PERCENT AUTO 8 % (4-13); Mean Corpuscular HGB 29.2 pg (26.0-34.0); Mean Corpuscular HGB Conc 32.4 g/dL (31.5-36.5); Mean Corpuscular Volume 90 fL (80-100); Mean Platelet Volume 9.6 fL (9.1-12.4); NEUTROPHILS ABSOLUTE AUTO 3.91 K/mm3 (1.96-9.15); NEUTROPHILS PERCENT AUTO 59 % (41-73); Platelet Count 173 K/mm3 (150-400); RDW Coefficient Variation 14.1 % (11.7-14.2); RDW Standard Deviation 46.3 fL (35.1-46.3); Red Blood Cell Count 4.63 M/mm3 (4.30-5.90); White Blood Cell Count 6.63 K/mm3 (4.00-11.30)
[2020-03-31 09:23] LABS: Anion Gap 8 mmol/L (6-16); Blood Urea Nitrogen 15 mg/dL (8-24); Bun/Creatinine Ratio 18.8 (12.0-20.0); CO2, Blood 22 mmol/L (21-32); Calcium, Blood 8.2 mg/dL (8.5-10.1); Chloride, Blood 107 mmol/L (98-108); Glomerular Filtration Rate >60 (60-); Glucose, Blood 301 mg/dL (70-99); Potassium, Blood 4.1 mmol/L (3.5-5.5); Sodium, Blood 137 mmol/L (136-145); Troponin I <0.015 ng/mL (0.000-0.040)
--- NOTE | 2020-03-31 12:57 | NUR ---
Echocardiogram completed.
--- NOTE | 2020-03-31 18:03 | NUR ---
SHIFT SUMMARY PT WOKE FOR SHIFT REPORT, ADMITTED FOR C/O CP. PER SHIFT REPORT, PT C/O INTERMITTENT CP SINCE HIS BROTHER A COUPLE OF DAYS AGO. TROPONINS NEG X4. PT BECOMING ANXIOUS AT TIMES AND THEN C/O CP. PT REPORTED POSSIBLE HIATAL HERNIA. ISTRATE IN TO SEE PT TODAY. NEW ORDERS PLACED. ECHO DONE AND CT OF CHEST REMAINS TO BE DONE; POSSIBLY IN AM. PT TO D/C TO HOME AFTER RESULTS OF ECHO AND CT OF CHEST. XANAX GIVEN X1 THIS AM, WHICH PT REPORTED HELPING WITH ANXIETY. PT REPORTED THAT HE IS PLANNING TO SEE AT [facility] FOR [facility]XIETY OUTPT. MORBIDLY OBESE, INSULIN DEPENDENT DIABETIC WITH NEUROPATHY TO FEET. INDEPENDENT IN RM AND TO BTHRM. DENIED FURTHER NEEDS. CALL LT IN REACH.
[2020-04-01 05:21] LABS: BASOPHILS ABSOLUTE AUTO 0.04 K/mm3 (0.00-0.23); BASOPHILS PERCENT AUTO 1 % (0-2); EOSINOPHILS PERCENT AUTO 8 % (0-6); Hematocrit 41.9 % (37.0-53.0); Hemoglobin 13.7 g/dL (13.5-17.5); IMMATURE GRAN ABSOLUTE AUTO 0.02 K/mm3 (0.00-0.10); IMMATURE GRAN PERCENT AUTO 0 % (0-1); LYMPHOCYTES ABSOLUTE AUTO 1.72 K/mm3 (0.84-5.20); LYMPHOCYTES PERCENT AUTO 29 % (21-46); MONOCYTES ABSOLUTE AUTO 0.56 K/mm3 (0.16-1.47); MONOCYTES PERCENT AUTO 9 % (4-13); Mean Corpuscular HGB 28.5 pg (26.0-34.0); Mean Corpuscular HGB Conc 32.7 g/dL (31.5-36.5); Mean Corpuscular Volume 87 fL (80-100); Mean Platelet Volume 9.5 fL (9.1-12.4); NEUTROPHILS ABSOLUTE AUTO 3.17 K/mm3 (1.96-9.15); NEUTROPHILS PERCENT AUTO 53 % (41-73); Platelet Count 166 K/mm3 (150-400); RDW Coefficient Variation 13.9 % (11.7-14.2); Red Blood Cell Count 4.81 M/mm3 (4.30-5.90); White Blood Cell Count 6.01 K/mm3 (4.00-11.30)
[2020-04-01 05:54] LABS: Alanine Aminotransfer (ALT/SGP 23 U/L (12-78); Albumin, Blood 3.4 g/dL (3.4-5.0); Albumin/Globulin Ratio 1.1 (0.8-1.8); Alk Phos 103 U/L (50-136); Anion Gap 6 mmol/L (6-16); Aspartate Aminotrans (AST/SGOT 15 U/L (12-37); Bilirubin, Total 0.8 mg/dL (0.1-1.0); Blood Urea Nitrogen 15 mg/dL (8-24); Bun/Creatinine Ratio 17.1 (12.0-20.0); CO2, Blood 26 mmol/L (21-32); Calcium, Blood 8.9 mg/dL (8.5-10.1); Chloride, Blood 107 mmol/L (98-108); Creatinine, Blood 0.88 mg/dL (0.60-1.20); Globulin, Blood 3.2 g/dL (2.2-4.0); Glomerular Filtration Rate >60 (60-); Glucose, Blood 194 mg/dL (70-99); Magnesium, Blood 2.1 mg/dL (1.6-2.4); Phosphorus, Blood 3.7 mg/dL (2.5-4.9); Potassium, Blood 3.8 mmol/L (3.5-5.5); Sodium, Blood 139 mmol/L (136-145); Total Protein, Blood 6.6 g/dL (6.4-8.2); Troponin I <0.015 ng/mL (0.000-0.040)
--- NOTE | 2020-04-01 06:22 | NUR ---
SHIFT SUMMARY PT IS A 54 Y/O MALE, ADMITTED FOR CHEST PAIN. HE IS A&O X 4, INDEPENDENT IN THE ROOM. PT DID REPORT INTERMITTENT MILD CHEST PAIN, BUT DID NOT REQUIRE PAIN MEDS. NO C/O NAUSEA OR SOB. PT IS ON CPAP WHILE SLEEPING, BUT STILL DESATS AND HAS PERIODS OF APNEA WITH THE CPAP ON. VITAL SIGNS STABLE. TELE SHOWED NSR IN THE 60-70S. CHEST CT COMPLETED IN THE EVENING OF 03/31. NO ACUTE CHANGES IN PT CONDITION NOTED DURING THE NIGHT. WILL CONTINUE TO MONITOR AND TREAT PER EMAR UNTIL HAND OFF TO DAY SHIFT RN.
[2020-04-01] MEDS ORDERED: ACET325 PO (11:51)
[2020-04-01] MEDS ORDERED: CRANBERRY500 M1 PO (11:52)
[2020-04-01] MEDS ORDERED: MELATONIN5 M1 PO (11:52)
[2020-04-01] MEDS ORDERED: ONDA4ODT MM (11:52)
--- NOTE | 2020-04-01 13:08 | NUR ---
DISCHARGE DISCHARGE MEDICATIONS AND INSTRUCTIONS EXPLAINED TO PATIENT. PATIENT STATED UNDERSTANDING. PATIENT TO CALL [facility] AND [facility] TO SCHEDULE FOLLOW UP. IV REMOVED WITHOUT DIFFICULTY. BELONGINGS WITH PATIENT. HOME 02 EVAL COMPLETED, NO OXYGEN NEEDED. HARD COPY SCRIPT FOR XANAX WITH PATIENT. PATIENT TRANSFERED TO PRIVATE VEHICLE VIA WHEELCHAIR.
[2020-06-22] MEDS ORDERED: TORSE20 PO (16:21)
[2020-06-22] MEDS ORDERED: SPIR25 PO (16:23)
[2020-06-22] MEDS ORDERED: MELATONIN + L-TH3 MG PO (16:23)
[2020-06-22] MEDS ORDERED: ACIDOPHILUS1 EAC3 PO (16:24)
[2020-06-22] MEDS ORDERED: Ventolin/Prove6.7 GM INH (16:24)
== END 2020-04-01 13:00 | disposition home or self-care (01) ==
LOC: ER 13:48 → ERHOLD 13:49 → MEDS 13:49
PROVIDERS: Family Medicine; Nurse Practitioner Acute Care; Physician Assistant; ADMIT Internal Medicine
DX: R07.9 Chest pain, unspecified (principal); E11.9 Type 2 diabetes mellitus without complications; E78.5 Hyperlipidemia, unspecified; G47.33 Obstructive sleep apnea (adult) (pediatric); K21.9 Gastro-esophageal reflux disease without esophagitis; F41.9 Anxiety disorder, unspecified; E66.9 Obesity, unspecified; N40.0 Benign prostatic hyperplasia without lower urinary tract symptoms; R19.7 Diarrhea, unspecified; F43.21 Adjustment disorder with depressed mood; I10 Essential (primary) hypertension; I70.0 Atherosclerosis of aorta; Z98.890 Other specified postprocedural states; Z99.89 Dependence on other enabling machines and devices; Z87.891 Personal history of nicotine dependence; Z88.8 Allergy status to other drugs, medicaments and biological substances; Z79.4 Long term (current) use of insulin
CPT/HCPCS: 0241U; 36415; 71045; 71250; 80048; 80053; 82947; 83735; 83880; 84100; 84443; 84484; 85025; 93005; 93010; 93308; 93321; 94660; 94761; 94762; 96360; 96361; 96372; 96372-59; 99285-25; A9270; G0378; J1650; J1815; J7030

== ENCOUNTER 2020-04-06 17:21 | Inpatient (IN) | payer OTHER, MEDICARE ==
[~2020-04-06] VITALS: Ht 167.6 cm; Wt 115.0 kg
[~2020-04-06 17:21] MED LIST changes: +ACET325 PO; +CRANBERRY500 M1 PO; +MELATONIN5 M1 PO; +ONDA4ODT MM; +Vitamin B Comple1 EA PO
[2020-04-06 18:27] LABS: BASOPHILS ABSOLUTE AUTO 0.07 K/mm3 (0.00-0.23); BASOPHILS PERCENT AUTO 1 % (0-2); EOSINOPHILS ABSOLUTE AUTO 0.47 K/mm3 (0.00-0.68); EOSINOPHILS PERCENT AUTO 7 % (0-6); Hematocrit 41.2 % (37.0-53.0); Hemoglobin 13.7 g/dL (13.5-17.5); IMMATURE GRAN ABSOLUTE AUTO 0.03 K/mm3 (0.00-0.10); IMMATURE GRAN PERCENT AUTO 0 % (0-1); LYMPHOCYTES ABSOLUTE AUTO 1.81 K/mm3 (0.84-5.20); LYMPHOCYTES PERCENT AUTO 25 % (21-46); MONOCYTES ABSOLUTE AUTO 0.65 K/mm3 (0.16-1.47); MONOCYTES PERCENT AUTO 9 % (4-13); Mean Corpuscular HGB 28.8 pg (26.0-34.0); Mean Corpuscular HGB Conc 33.3 g/dL (31.5-36.5); Mean Corpuscular Volume 87 fL (80-100); Mean Platelet Volume 9.8 fL (9.1-12.4); NEUTROPHILS ABSOLUTE AUTO 4.15 K/mm3 (1.96-9.15); NEUTROPHILS PERCENT AUTO 58 % (41-73); Platelet Count 186 K/mm3 (150-400); RDW Coefficient Variation 14.1 % (11.7-14.2); RDW Standard Deviation 45.1 fL (35.1-46.3); Red Blood Cell Count 4.75 M/mm3 (4.30-5.90); White Blood Cell Count 7.18 K/mm3 (4.00-11.30)
[2020-04-06 18:37] LABS: Alanine Aminotransfer (ALT/SGP 35 U/L (12-78); Albumin, Blood 3.8 g/dL (3.4-5.0); Albumin/Globulin Ratio 1.2 (0.8-1.8); Alk Phos 107 U/L (50-136); Anion Gap 6 mmol/L (6-16); Aspartate Aminotrans (AST/SGOT 10 U/L (12-37); Bilirubin, Total 0.4 mg/dL (0.1-1.0); Blood Urea Nitrogen 17 mg/dL (8-24); Bun/Creatinine Ratio 16.3 (12.0-20.0); CO2, Blood 24 mmol/L (21-32); Calcium, Blood 8.9 mg/dL (8.5-10.1); Chloride, Blood 105 mmol/L (98-108); Creatinine, Blood 1.04 mg/dL (0.60-1.20); Globulin, Blood 3.2 g/dL (2.2-4.0); Glomerular Filtration Rate >60 (60-); Glucose, Blood 350 mg/dL (70-99); Potassium, Blood 4.1 mmol/L (3.5-5.5); Sodium, Blood 135 mmol/L (136-145); Troponin I <0.015 ng/mL (0.000-0.040)
[2020-04-06] MEDS ORDERED: ATOR40TA PO (19:50)
[2020-04-06] MEDS ORDERED: TAMS.4ER PO (19:51)
[2020-04-06] MEDS ORDERED: OMEP20ER PO (19:51)
[2020-04-06] MEDS ORDERED: NOVOLOG FL100 UNIT/3 SC (19:51)
[2020-04-06] MEDS ORDERED: Aspirin EC81 MG PO (19:52)
[2020-04-06] MEDS ORDERED: BASAGLAR K100 UNIT/1 SC (19:52)
[2020-04-06] MEDS ORDERED: AMLO10 PO (19:52)
[2020-04-06] MEDS ORDERED: BRILINTA90 MG PO (19:52)
[2020-04-06] MEDS ORDERED: NITR.4SL SL (19:53)
[2020-04-06] MEDS ORDERED: Bystolic20 MG PO (19:53)
[2020-04-06] MEDS ORDERED: METF500 PO (19:54)
[2020-04-06] MEDS ORDERED: Isosorbide Mono30 MG PO (19:54)
[2020-04-06] MEDS ORDERED: ALPR.5 PO (19:54)
[2020-04-06] MEDS ORDERED: MAGNESIUM250 MG PO (19:55)
[2020-04-06] MEDS ORDERED: IBUP400 PO (19:56)
[2020-04-06] MEDS ORDERED: FISH OIL 1,2001 EAC7 PO (19:56)
--- NOTE | 2020-04-06 22:06 | NUR ---
ADMISSION: PATIENT IS RECIEVED FROM ER VIA STRETCHER. ABLE TO AMB. TO BED WITH STEADY GAIT. ORIENTED TO ROOM AND CALL SAHU, RAPPID RESPONSE AND FALL PREVENTION. PATIENT HAS WALLET AND CARTER, SECURITY COMES TO ROOM FOR VALUBLES AND TRANFERS THEM TO SAFE. RECIEPT IS IN CHART.
--- NOTE | 2020-04-07 00:47 | NUR ---
CARDIAC: PATIENT REPORTED CHEST PAIN 7/10. DR LEVINE WAS CALLED AND ORDERS FOR EKG, TROPONIN NOW, NITRO SL AND DC NITRO PATCH. AFTER NITRO 1 TAB CHEST PAIN IS 4/10. 5 MIN LATER PAIN IS 3/10 AND PATIENT DENIES NEED OF SECOND NITRO AND IS RESTING IN BED.
[2020-04-07 00:57] LABS: BASOPHILS ABSOLUTE AUTO 0.09 K/mm3 (0.00-0.23); BASOPHILS PERCENT AUTO 1 % (0-2); EOSINOPHILS ABSOLUTE AUTO 0.48 K/mm3 (0.00-0.68); EOSINOPHILS PERCENT AUTO 7 % (0-6); Hematocrit 42.6 % (37.0-53.0); Hemoglobin 13.9 g/dL (13.5-17.5); IMMATURE GRAN ABSOLUTE AUTO 0.02 K/mm3 (0.00-0.10); IMMATURE GRAN PERCENT AUTO 0 % (0-1); LYMPHOCYTES ABSOLUTE AUTO 2.18 K/mm3 (0.84-5.20); LYMPHOCYTES PERCENT AUTO 31 % (21-46); MONOCYTES ABSOLUTE AUTO 0.62 K/mm3 (0.16-1.47); MONOCYTES PERCENT AUTO 9 % (4-13); Mean Corpuscular HGB 28.3 pg (26.0-34.0); Mean Corpuscular HGB Conc 32.6 g/dL (31.5-36.5); Mean Corpuscular Volume 87 fL (80-100); Mean Platelet Volume 9.4 fL (9.1-12.4); NEUTROPHILS ABSOLUTE AUTO 3.66 K/mm3 (1.96-9.15); NEUTROPHILS PERCENT AUTO 52 % (41-73); Platelet Count 209 K/mm3 (150-400); RDW Standard Deviation 44.4 fL (35.1-46.3); Red Blood Cell Count 4.92 M/mm3 (4.30-5.90); White Blood Cell Count 7.05 K/mm3 (4.00-11.30)
[2020-04-07 01:18] LABS: Anion Gap 9 mmol/L (6-16); Blood Urea Nitrogen 17 mg/dL (8-24); Bun/Creatinine Ratio 18.2 (12.0-20.0); CO2, Blood 24 mmol/L (21-32); Calcium, Blood 8.8 mg/dL (8.5-10.1); Chloride, Blood 105 mmol/L (98-108); Creatinine, Blood 0.93 mg/dL (0.60-1.20); Glomerular Filtration Rate >60 (60-); Glucose, Blood 237 mg/dL (70-99); Potassium, Blood 3.6 mmol/L (3.5-5.5); Sodium, Blood 138 mmol/L (136-145); Troponin I 0.028 ng/mL (0.000-0.040)
--- NOTE | 2020-04-07 01:35 | NUR ---
GI: PATIENT REPORTED NAUSEA AFTER NITRO FOR CHEST PAIN, ZOFRAN WAS GIVEN.
--- NOTE | 2020-04-07 01:39 | NUR ---
CARDIAC: PATIENT IS REPORTING CHEST PAIN CREEPING UP 08/10, NITRO IS GIVEN.
--- NOTE | 2020-04-07 02:23 | NUR ---
CARDIAC: PATIENT HAD GOOD EFFECT FROM NITRO SL X1. DR LEVINE WAS CALLED AND NOTIFIED OF CONTINUED INTERMITTENT CHEST PAIN AND SECOND TROPONIN RESULT AND EKG WHICH WAS UNCHANGED FROM EARLIER EKG. ORDER FOR FENTANYL PRN FOR PAIN WAS OBTAINED. PATIENT REPORTED GOOD EFFECT FROM 1 DOSE OF NITRO AND DENIES NEED OF FENTANYL. TELEMETRY REMAINS NSR WITH RATE IN THE 70'S.
--- NOTE | 2020-04-07 03:01 | NUR ---
CARDIAC: PATIENT IS REPORTING CHEST PAIN 7/10. REPORTS PAIN RADIATING DOWN BOTH ARMS. STATES "IT'S HARD TO TAKE A DEEP BREATH." NITRO WAS GIVEN X1 WITH POOR EFFECT. FENTANYL WAS THEN GIVEN WITH GOOD EFFECT. PATIENT NOW RATING PAIN AT 4/10.
--- NOTE | 2020-04-07 07:59 | NUR ---
SHIFT SUMMARY: A&OX4 CHEST PAIN WAS RATED AT A DULL 4/10. PATIENT DENIED NEED OF NITRO BUT REQUESTED XANAX TO HELP CALM DOWN AND SLEEP. POOR EFFECT FROM XANAX. PATIENT EXPERIENCED THREE EPISODES OF CHEST PAIN THROUGH THE NIGHT. SECOND TROPONIN WAS0.028, EKG WAS UNCHANGED, VSS AND NO CHANGES OBSERVED ON TELEMETRY. NITRO WAS GIVE X1 WITH EACH EPISODE WITH GOOD EFFECT FOR THE FIRST TWO. LAST EPISODE, NITRO HAD POOR EFFECT AND FENTANYL WAS GIVEN PER DR LEVINE ORDER. PATIENT HAD QUICK RELIEF WITH FENTANYL BUT WAS STILL ANXIOUS AND TEARFUL. EMOTIONAL SUPPORT WAS GIVEN. PATIENT THEN RESTED AND WAS ABLE TO SLEEP. 02 WAS ADMIN @ 2L VIA NC FOR COMFORT, CPAP WAS NOT USED DUE TO AN EPISODE OF NAUSEA THAT WAS TREATED WITH ZOFRAN WITH GOOD EFFECT.
--- NOTE | 2020-04-07 13:16 | NUR ---
Spiritual care visit conducted. Patient is lying in bed and alert. Patient tells me about his medical issues and his fears about his medical issues. He also shares his interesting views on Tenriism and God. Patient talks about many personal struggles, anxieties and family unit complications. Patient's brother at [facility] from COVID-19 a few days ago and this has deeply impacted him as well. I listen empathically, normalize his experience, hear confession and provide anxiety containment, grief support and prayer. Patient responds well and shows signs of reduced stress and anxiety. I will continue to be available assist patient in dealing with his emotional/ spiritual distress.
--- NOTE | 2020-04-07 18:26 | NUR ---
SHIFT SUMMARY- PT IS A/O, PLESANT AND COOPERATVE. HE IS EATING AND DRINKING WELL. BG IS ELEVATED AND HE IS RECIEVING COVERAGE. HE C/O CHEST PAIN THIS SHIFT RECIEDED PRN PAIN MEDICATION. CARDIOLOGY CONSULTED. DR. CASTAÑEDA ORDERED A STRESS TEST FOR TOMORROW. PT REPORTS CONSTIPATION. HIS BED IS IN THE LOW POSITION AND CALL LIGHT IS WITHIN REACH. HE SLEPT FOR MUCH OF THIS SHIFT.
--- NOTE | 2020-04-07 21:05 | NUR ---
CARDIAC: PT REPORTED CHEST PAIN OF 5/10, DENIES RADIATING PAIN / OTHER DISCOMFORT. DENIES SOB, TELE SR AT 66, BP @ 135/75, P:67BPM REG, O2: 96% RA. PT GIVEN X1 NITRO. PT ALSO REQUESTED PRN XANAX FOR ANXIETY RELIEF. AT APPROXIMATELY 2112, PT REPORTED RELIEF OF CHEST PAIN.
--- NOTE | 2020-04-08 05:25 | NUR ---
MACHINE CLOTH TRIMMER SUMMARY PT A&OX4, ABLE TO MAKE NEEDS KNOWN. PLEASANT AND COOPERATIVE TO CARE. PT MEDICATED FOR CHRONIC PAIN THIS SHIFT. AT APPROX 210, PT C/O CP AND ANXIETY. PT MEDICATED PER EMAR AND REPORTED RELIEF AFTER TX. TELE NSR 60's T/O SHIFT. VSS. PT CALM AND RESTED IN BED SINCE. NO C/O SOB, OR N&V. PT USES CPAP DURING SLEEP, ON CONT BIOX SATS >90%. BED AT LOWEST POSITION. CALL LIGHT WITHIN REACH. PT IS SCHEDULED TO HAVE A STRESS TEST TODAY.
[2020-04-08 17:27] LABS: Prothrombin Time Results 10.7 Sec (9.7-11.5)
[2020-04-08 17:58] LABS: Influenza A, PCR NEGATIVE (NEGATIVE); Influenza B, PCR NEGATIVE (NEGATIVE); Resp Syncytial Virus, PCR NEGATIVE (NEGATIVE); SARS-Cov-2 (COVID-19) PCR, MMC NEGATIVE (NEGATIVE)
--- NOTE | 2020-04-08 19:26 | NUR ---
PATIENT XFR: PATIENT TRANSFERRED TO PCU-13 DUE TO REQUIREMENT FOR HIGHER LEVEL OF CARE. REPORT GIVEN TO ANTONIA INMAN.
--- NOTE | 2020-04-08 19:57 | NUR ---
TRANSFER NOTE RECIEVED REPORT FORM ANTONIA MANE FROM MEDICAL FLOOR. PT TO ROOM AT 1815; ORIENTED TO ROOM AND CALL LIGHT. PT A&Ox4; ANXIOUS BUT COOPERATIVE WITH CARE. PT RESTING IN BED, UP SBA TO BATHROOM. PT SOB WITH EXERTION; SPO2 >90% ON 2L O2 ANC, WEARING CPAP AT NOC. LS DIM IN BASES; OTHERWISE CLEAR. PT REPORTS 2/10 CHEST PAIN; STATES WHEN IT STARTS TO INCREASE IT GOES FROM 2/10 TO 10/10 IN SECONDS. PT DENIES NUMB/TINGLING. BS IN Q4 QUAD NOTED. VSS. HEPARIN STARTED PER ORDERS. NO OTHER ACUTE CHANGES NOTED DURING SHIFT. WILL CONTINUE TO MONITOR UNTIL REPORT GIVEN TO ONCOMING RN.
--- NOTE | 2020-04-09 00:54 | NUR ---
PATIENT IS ALERT, ORIENTED AND COOPERATIVE WITH CARE. 1 PERSON ASSIST TO THE BATHROOM, DUE TO CHEST PAIN SUGGESTED PATIENT USES URINAL IN BED. PATIENT WEARING CPAP WHILE SLEEPING. CALLED HOSPITALIST TO REDUCE LONG ACTING INSULIN DOSAGE DUE TO PT STATING HE WOULD NOT TAKE 100 UNITS WITH HIS CBG AT 207, AND PATIENT BEING NPO AT MIDNIGHT. DOSAGE CHANGED SEE EMAR. 2024-PATIENT REPORTED 8/10 CP, NITRO GIVEN @2027. PATIENTS CP STILL A 7/10, MORE NITRO GIVEN SEE EMAR, PATIENT THEN REPORT CP RESOLVING. PATIENT THEN WENT TO SLEEP. 2244- PATIENT REPORTED 9/10 CP, NITRO GIVEN. @2255 CP 10/10 MORE NITRO GIVEN. @2305 CP 7/10, THIRD NITRO GIVEN SEE EMAR. PATIENT THEN REPORTED CP RESOLVING AND ABOUT A 2/10. 2341- DR. ALMAZAN CALLED AND NOTIFIED OF CP AND USE OF NITRO (SEE EMAR), SAID TO CONTINUE TREATING WITH NITRO LONG CP IMPROVING. PATIENT IS NOW SLEEPING. VSS. CALL LIGHT IN REACH.
[2020-04-09 01:40] LABS: CHOL/HDL RATIO 4.6; Cholesterol 144 mg/dL (50-200); HDL Cholesterol 31 mg/dL (>39); LDL/HDL RATIO 1.8; Low Density Lipoprotein Chol 56 mg/dL (0-110); Triglycerides 286 mg/dL (30-160); Very Low Density Lipoprot Chol 57 mg/dL (6-32)
--- NOTE | 2020-04-09 04:59 | NUR ---
SHIFT SUMMARY PATIENT HAD ONE MORE EPISODE OF CP THAT RESOLVED WITH 3 TABLETS OF NITRO, SEE EMAR, AND PREVIOUS NOTE FOR SUMMARY OF PREVIOUS CP. PATIENT WENT BACK TO SLEEP USING CPAP. ENCOURAGED PT TO USE URINAL INSTEAD OF BATHROOM TO PREVENT MORE CP. PATIENT HAS BEEN NPO SINCE MIDNIGHT. 02 SATS >95% ON RA. VSS, NO OTHER ACUTE CHANGES. CALLS APPROPRIATELY, CALL LIGHT IN REACH.
--- NOTE | 2020-04-09 05:44 | NUR ---
0435- PATIENT REPORTING 7/10 CP, NITRO GIVEN SEE EMAR. PATIENT REPORTS CP DECREASED AFTER 2ND NITRO.
[2020-04-09 08:16] LABS: Mean Platelet Volume 9.7 fL (9.1-12.4); Platelet Count 159 K/mm3 (150-400)
--- NOTE | 2020-04-09 18:25 | NUR ---
SHIFT SUMMARY PT HAVING CHEST PAIN THIS AM; NITRO x2 WITH POSITIVE RESULTS. PT A&Ox4; ANXIOUS BUT COOPERATIVE WITH CARE. PT RESTING IN BED DURING SHIFT. UP TO BATHROOM WITH SBA. DENIES CHEST PAIN SINCE PROCEDURE; DENIES PAIN, SOB, NAUSEA AND DIZZINESS. RIGHT RADIAL SITE RECOVERED PER PROTOCOL; TEGADER AND ARM BOARD IN PLACE. BP SOFT AFTER NITRO THIS AM AND PROCEDURE. OTHER VSS. NO OTHER ACUTE CHANGES NOTED DURING SHIFT. WILL CONTINUE TO MONITOR UNTIL REPORT GIVEN TO ONCOMING RN.
--- NOTE | 2020-04-10 06:27 | NUR ---
SHIFT SUMMARY PT SLEPT T/O SHIFT. ALERT AND ORIENTED X 4. PT WORE CPAP T/O SHIFT. REPORTED CHEST DISCOMFORT, PT WAS UNSURE IF WAS CARDIAC RELATED OR ANXIETY. CONSULTED WITH SINK MAKER. PT RECEIVED ANXIETY MEDICATION, SEE EMAR. PT ABLE TO REST THE REST OF SHIFT. HR STABLE. BP STABLE. OXYGEN SATURATION MAINTAINED ABOVE 92%. WILL CONTINUE TO MONITOR UNTIL REPORT GIVEN TO DAYSHIFT RN.
--- NOTE | 2020-04-10 09:00 | NUR ---
PATIENT REPORTED CHEST PAIN RATED 3/10 THAT HE'S HAD SINCE LAST NIGHT AT 1900. GAVE NITRO X2 WHICH REDUCED CHEST PAIN TO 1/10. PATIENT DID NOT WANT A THIRD NITRO. PATIENT STATES PAIN IS A PRESSURE THAT GOES STRAIGHT TO HIS UPPER BACK. HAS CHRONIC LOW BACK PAIN. NORCO GIVEN FOR BACK PAIN AND XANAX GIVEN FOR ANXIETY. CALL LIGHT IN REACH.
--- NOTE | 2020-04-10 09:30 | NUR ---
CALL OUT TO DR. ARNOLD.
--- NOTE | 2020-04-10 11:00 | NUR ---
CALLED DR. ARNOLD. NOTIFIED HIM PATIENT HAD CHEST PAIN THIS AM RATED 3/10, STATED HE HAD IT SINCE 1900 LAST NIGHT. GAVE HIM TWO NITRO AND CHEST PAIN WENT DOWN FROM 3/10 TO 1/10. PATIENT DID NOT WANT TO TAKE A THIRD NITRO. GAVE PATIENT XANAX AND NORCO FOR HIS BACK PAIN. PATIENT NOW DENIES CHEST PAIN. DR. ARNOLD STATES THAT IS EXPECTED, THAT HE WILL BE IN TO SEE THE PATIENT THIS AM.
--- NOTE | 2020-04-10 11:19 | NUR ---
DR. ARNOLD AT BEDSIDE. DISCUSSED PLAN OF CARE. PATIENT'S BROTHER LAST WEEK AND THE IS TODAY. DR. ARNOLD STATES HE BELIEVES THE CHEST PAIN IS RELATED TO GRIEF AT THIS TIME. PLAN IS TO TRANSFER TO MEDICAL FLOOR WITH TELE AND CONTINUE WITH XANAX HOSPITALIST ORDERS.
--- NOTE | 2020-04-10 13:45 | NUR ---
REPORT CALLED TO THIAGO JARVIS RN AT 1333. QUESTIONS/CONCERNS ANSWERED AT THAT TIME. SENT TR BAND DISCHARGE PAPER WITH PATIENT. MEDS SENT WITH PATIENT. PATIENT TRANSFERRED TO ROOM 339 VIA BED BY PCT. PATIENT AWARE OF TRANSFER. NO FURTHER QUESTIONS AT TIME OF TRANSFER.
--- NOTE | 2020-04-10 17:53 | NUR ---
Shift Summary Report received from Renita PCU-RN. Patient arrived to unit via w/c at 1355. A/Ox3, pleasant and cooperative with care. Denies chest pain, but does c/o chronic back pain. Very conversational. Attempted to encourage patient to mobilize but patient states "The more I move, the more it hurts" and "I have been living a sedentary lifestyle for over 20 years and my joints and muscles can't twist anymore." Will keep encouraging mobility to bathroom and in room to increase strength. No acute changes. WCTM.
--- NOTE | 2020-04-10 22:45 | NUR ---
CBG 218. PT REFUSED FULL DOSE OF SEMGLEE ON ACCOUNT OF FEAR CBG "WOULD DROP TOO LOW BY MORNING". PT OPTED TO TAKE 60 UNITS INSTEAD. WILL MONITOR CLOSELY.
--- NOTE | 2020-04-10 22:45 | NUR ---
REFUSED FULL DOSE ON ACCOUNT OF FEAR CBG "WOULD DROP TOO LOW BY MORNING". PT OPTED TO TAKE 60 UNITS INSTEAD.
--- NOTE | 2020-04-11 04:30 | NUR ---
FALL: PT IS A/OX4, SBA PREVIOUSLY AND WAS AWARE NOT TO AMBULATE W/O STAFF ASSIST. HE'D JUST REQUESTED SHOWER BUT UPON LEARNING PT HAD INTERMITTENT DIZZYNESS, WHICH HE HADN'T REPORTED PRIOR THIS SHIFT, WE OPTED FOR A BEDBATH INSTEAD. METAL FURNACE OPERATOR, EUFEMIA BURNS HAD BEEN IN HIS ROOM X8 TIMES FOLLOWING BED BATH AND IN THE 20 MINS PRIOR TO HIM FALLING UNWITNESSED FOR VARIOUS NEEDS. HE'D BEEN ASYMPTOMATIC OF ALL S/S DISTRESS DURING THESE REQUESTS FOR ASSIST. WHEN PT CALLED THIS TIME, EUFEMIA ENTERED THE ROOM WITHIN 2 MINS OF CALLING AND FOUND PT LAYING ON STOMACH ON THE GROUND. HE ALERTED THIS RN IMMEDIATELY AND WE ASSISTED HIM BACK TO BED. VITALS OBTAINED AND WERE STABLE: BP 125/72, HR 73, SPO2 98% ON RA AND RR 14. THESE VITALS WERE ENTIRELY CONSISTENT W/PREVIOUS AM RESULTS.TELEMETRY REPORTED NO CHANGES WITHIN PREVIOUS 10 MINS AND T/O NOCTE. HE REMAINED NSR AT 60'S-70'S BPM W/O ECTOPIES. PT DESCRIBED HE'D GOTTEN UP TO LOOK FOR EYE MASK, BENT OVER TO PICK IT UP THEN STUMBLED TO THE GROUND. HE REPORTED HE BRACED HIS FALL W/HIS R.ARM AND DIDN'T USE L.ARM WHICH REMAINS IN AN IMMOBILIZER FOLLOWING RADIAL ACCESS SITE. OBSERVED L.WRIST AND CLEAR OCCLUSIVE DX TO R.WRIST REMAINED C/D/I. PT REPORTED HITTING HEAD WHEN BRACING FALL. NO REDNESS, ABRASIONS, SCRAPES, BRUISING OR SWELLING NOTED. PT REPORTED SAAVEDRA AND THEN NEW R.LEG PAIN IN ADDITION TO CHRONIC L.LEG PAIN EXPLAINING HE "MAYBE TWEAKED HIS BACK FURTHER". PT HAS BACK STIMULATOR IN PLACE FOR CHRONIC BACK PAIN. TYLENOL TO BE PROVIDED PRN W/EFFECT MONITORED. ELECTRON BEAM MACHINE WELDER SETTER, ANTONIA HOUSTON (LISA) CASINO BANKER (MARCELO FELDMAN) AND () MADE AWARE. RX'D FALL PRECAUTIONS, SBA OOB ONLY, BED ALARM AT ALL TIMES AND HEAD CT D/T PT BEING ON ASA W/ C/O SAAVEDRA. STAFF REMAINED W/PT AND HE SEEMED TO BE ASYMPTOMATIC OF ANY FURTHER DISTRESS BUT REPORTED FEELING "STUPID BECAUSE HE KNEW BETTER". HE HAS HIGH ANXIETY AT BASELINE AND CALLS OFTEN FOR MANY NON-ACUTE NEEDS WA. PT APEARS TO BE SETTLED AND DENIES FURTHER NEEDS BUT IS AWARE TO ALERT STAFF PRN FOR ANY CHANGES OR ASSISTANCE. CALL LIGHT IN REACH AND BED ALARM ON. PT AGGREEABLE TO UPDATED PLAN OF CARE BUT UPON LEARNING OF HEAD CT STATED HE "BARELY EVEN BUMPED IT AND DOESN'T THINK IT'S REALLY NECESSARY". STAFF REITTERATED PT SAFETY AND NEEDING TO R/O OUT ANY POTENTIAL INJURY.
--- NOTE | 2020-04-11 06:00 | NUR ---
PT TAKEN FOR HEAD CT VIA W/C AND DENIED COMPLAINTS AT THAT TIME ASIDE FROM MILD SAAVEDRA AND CHRONIC BACK/LEG PAIN. TYELNOL RECIEVED UPON PT RETURN TO ROOM AND AWAITING EFFECT. BED ALARM ON W/CALL LIGHT IN REACH AND DOOR REMAINS OPEN FOR CLOSER MONITORING.
--- NOTE | 2020-04-11 07:44 | NUR ---
SUMMARY: PT A/OX3 AND WAS MOSTLY PLEASANT AND COOPERATIVE W/CARE. HE IS VERY CONVERSATIONAL AND HAS ANXIETY AT TIMES SO RECIEVED XANAX PER REQUEST AT HS FOR GOOD EFFECT. HE'D INITIALLY DENIED CP, DIZZYNESS, DYSPNEA AND ALL OTHER S/S CARDIAC DISTRESS AND SLEPT FOR MAJORITY OF SHIFT. UPON SHOWER REQUEST THIS AM HE WAS GIVEN A BEDBATH INSTEAD AFTER NEW C/O DIZZY BUT CONTINUING TO DENY ALL COMPLAINTS OUTSIDE OF CHRONIC PAIN. EXPERIMENTAL OUTBOARD MOTORS MECHANIC HAD BEEN IN TO ASSIST HIM MULTIPLE TIMES BUT FOUND ON THE GROUND AFTER CALLING FOR ASSIST AND CLAIMING TO HAVE FALLEN. NO INJURIES WERE APPARENT AND VSS. SEE PREVIOUS NOTE FOR DETAILS. HEIGHTENED FALL PRECAUTIONS IMPLEMENTED, BED ALARM ARMED, HEAD CT COMPLETED AND TYLENOL RECIEVED FOR C/O SAAVEDRA. HE'D PREVIOUSLY ONLY C/O CHRONIC BACK AND L.LEG PAIN W/NORCO RECIEVED PRN FOR TOLERABLE CONTROL. HE'S REMAINED NSR AT 60'S BPM T/O NOCTE W/NO ECTOPIES OR RATED CHANGE DURING/POST FALLING. PT RECIEVED A PARTAIL DOSE (60 UNITS) OF SEMGLEE AT HS PER PT FEAR OF "DROPPING TOO LOW". CBG WAS 218. HE TOLERATED CPAP AT HS W/CONT BIOX INTACT AND NO DESATS OBSERVED. NO ACUTE CHANGES, VSS/AFEBRILE. PT WAS ANTICIPATED D/C TODAY. WCTM AND REPORT TO DAY RN.
--- NOTE | 2020-04-11 10:36 | NUR ---
Chest Pain 5/10 0912: Patient reports chest pain 5/10 and requesting Xanax + Nitro. Administered both. 924: Reassessed. Pain 0/10. Patient resting comfortably in bed.
--- NOTE | 2020-04-11 11:48 | NUR ---
Met pt. sitting on up ands his therapist in the room attending to his needs ,pt. is in pain,offered prayers and spiritual support.
[2020-04-11] MEDS ORDERED: Acetaminophen325 M1 PO (17:14)
[2020-04-11] MEDS ORDERED: SIME80CH PO (17:15)
--- NOTE | 2020-04-11 18:15 | NUR ---
Discharge Summary A/Ox3, pleasant and cooperative. Worked with PT, stated dizziness throughout therapy session. C/O 5/10 chest pain this morning, nitro and xanax given per patient request with good effect. Discharging to home with HH. Per Dr. Michele, ok to discharge without being seen by CM today. CM to schedule HH tomorrow. Reviewed discharge paperwork with patient, copy provided. Meds faxed to [place] [facility]. Escorted by [employer] via w/c. Personal belongings sent home. Family transport. Home med bystolic given to patient. Stopped at Security to p/u personal belongings.
[2020-06-22] MEDS ORDERED: TORSE20 PO (16:21)
[2020-06-22] MEDS ORDERED: SPIR25 PO (16:23)
[2020-06-22] MEDS ORDERED: MELATONIN + L-TH3 MG PO (16:23)
[2020-06-22] MEDS ORDERED: ACIDOPHILUS1 EAC3 PO (16:24)
[2020-06-22] MEDS ORDERED: Ventolin/Prove6.7 GM INH (16:24)
== END 2020-04-11 17:55 | disposition home health service (06) | DRG 247 ==
LOC: ER 17:21 → MEDS 20:58 → PCU 04-08 18:25 → MEDS 04-10 13:44
PROVIDERS: Emergency Medicine; Internal Medicine; Internal Medicine Interventional Cardiology; Nurse Practitioner Acute Care; Pharmacist; ADMIT Family Medicine
PROC: 027034Z Dilation of Coronary Artery, One Artery with Drug-eluting Intraluminal Device, Percutaneous Approach (ICD-10-PCS; principal; 2020-04-09)
PROC: 4A023N7 Measurement of Cardiac Sampling and Pressure, Left Heart, Percutaneous Approach (ICD-10-PCS; 2020-04-09)
PROC: B2111ZZ Fluoroscopy of Multiple Coronary Arteries using Low Osmolar Contrast (ICD-10-PCS; 2020-04-09)
DX: I21.4 Non-ST elevation (NSTEMI) myocardial infarction (principal); Z68.41 Body mass index [BMI] 40.0-44.9, adult; E66.2 Morbid (severe) obesity with alveolar hypoventilation; I25.110 Atherosclerotic heart disease of native coronary artery with unstable angina pectoris; E11.9 Type 2 diabetes mellitus without complications; I10 Essential (primary) hypertension; E78.5 Hyperlipidemia, unspecified; Z95.5 Presence of coronary angioplasty implant and graft; Z79.4 Long term (current) use of insulin; Z87.891 Personal history of nicotine dependence; Z79.82 Long term (current) use of aspirin; F43.21 Adjustment disorder with depressed mood
CPT/HCPCS: 0241U; 36415; 70450; 71045; 76937; 80048; 80053; 80061; 82947; 84484; 85025; 85049; 85347; 85379; 85610; 85730; 93005; 93010; 93458; 94660; 94762; 97116; 97162; 97530; 99152; 99153; 99285-25; A9270; C1725; C1769; C1874; C1887; C1894; C9600; J1644; J1650; J2250; J2405; J3010; J7030; J7050; Q9967

== ENCOUNTER 2020-06-23 07:18 | Day surgery (SDC) | payer MEDICARE, OTHER ==
[~2020-06-23] VITALS: Ht 167.6 cm; Wt 114.0 kg
[~2020-06-23 07:18] MED LIST changes: +ACIDOPHILUS1 EAC3 PO; +ALPR.5 PO; +AMLO10 PO; +ATOR40TA PO; +Acetaminophen325 M1 PO; +Aspirin EC81 MG PO; +BASAGLAR K100 UNIT/1 SC; +BRILINTA90 MG PO; +Bystolic20 MG PO; +FISH OIL 1,2001 EAC7 PO; +MAGNESIUM250 MG PO; +MELATONIN + L-TH3 MG PO; +NITR.4SL SL; +NOVOLOG FL100 UNIT/3 SC; +OMEP20ER PO; +SIME80CH PO; +SPIR25 PO; +TAMS.4ER PO; +TORSE20 PO; +Ventolin/Prove6.7 GM INH
[2020-06-23] MEDS ORDERED: ALPR1 PO (07:59)
[2020-06-23] MEDS ORDERED: ACIDOPHILUS1 EAC3 PO (08:01)
[2020-06-23] MEDS ORDERED: RANO500T PO (08:21)
--- NOTE | 2020-06-23 10:37 | NUR ---
RETURNED FROM THE [facility], RIGHT GROIN ANGIOSEAL SITE WITH JOSE AND TEGADERM. CDI, SOFT, NO BLEEDING, NO HEMATOMA. RIGHT RADIAL WITH TR BAND IN PLACE WITH 10 ML IN THE BAND. WHITE BOARD IN PLACE AND PATIENT URGED NOT TO USE THE RIGHT ARM/WRIST. PATIENT PLACED ON THE MONITOR. CALL LIGHT IN REACH. ROLLED UP SHEET PLACED UNDER EACH SHOULDER FOR DISCOMFORT AND SHOULDER SUPPORT. VVS. SBAR RECEIVED FROM ANTONIA MILNER.
--- NOTE | 2020-06-23 12:14 | NUR ---
1200 ATTEMPTED TO REMOVED 2-3 ML OF AIR FROM THE TR BAND AND BLEEDING OCCURRED. REPLACED THE 3 ML OF AIR, NO FURTHER BLEEDING NOTED. SOFT, NO HEMATOMA NOTED. PATIENT SITTING UP IN THE BED. RIGHT GROIN STABLE. LUNCH TRAY SERVED AND PATIENT FEEDING SELF.
--- NOTE | 2020-06-23 12:40 | NUR ---
1240 BEGAN REMOVING AIR FROM THE TR BAND. 3 ML REMOVED. CONTINUE TO MONITOR. VVS. SITTING UP IN THE BED. RIGHT GROIN STABLE, NO HEMATOMA NOTED. CALL LIGHT IN REACH.
--- NOTE | 2020-06-23 13:18 | NUR ---
1300 TR BAND FLAT, SON AT THE BEDSIDE AND UPDATED ON PATIENT DISCHARGE POTENTIAL TIME. RIGHT GROIN SITE STABLE. CDI, NO HEMATOMA NOTED. PATEINT FREE TO MOVE IN THE BED FOR COMFORT (CHRONIC BACK ISSUES NOTED). VVS. CALL IGHT IN REACH.
--- NOTE | 2020-06-23 13:58 | NUR ---
7537 PATIEN UP TO THE RESTROOM. GAIT STEADY. TR BAND FLAT, NO BLEEDING NOTED. REVIEWED DISCHARGE INSTRUCTIONS WITH THE PATIENT.
--- NOTE | 2020-06-23 14:30 | NUR ---
1415 PATIENT UP AND DRESSED SELF. GATHERED ALL BELONGINGS AND PIV REMOVED FROM THE LEFT AC. PRESSURE DRESSING APPLIED. NO C/O PAIN TO THE RIGHT GROIN OR RIGHT WRIST. TR BAND REMOVED AND SITE CLEANED, CLOTH DOT PLACED AND WHITE BOARD REPLACED TO REMIND PATINET NOT TO USE OR EXCESSIVELY BEND THE RIGHT WRIST. PATIENT VERBALIZED UNDERSTANDING. PATIENT TO THE WHEELCHAIR FOR DISCHARGE. ALL DISCHARGE PAPERWORK REVIEWED/SIGNED/AND COPIES GIVEN TOTHE PATIENT. ALL QUESTIONS ANSWERED. PATIENT WHEELCHAIRED TO THE [facility]TR[facility] AND SON PICKED UP PATIENT. DISCHARGED HOME WITH A FOLLOWUP IN TWO WEEKS WITH DR. APPLE.
== END 2020-06-23 14:30 | disposition home or self-care (01) ==
LOC: MHTC 07:18
DX: I25.118 Atherosclerotic heart disease of native coronary artery with other forms of angina pectoris (principal); I11.0 Hypertensive heart disease with heart failure; I50.30 Unspecified diastolic (congestive) heart failure; E78.5 Hyperlipidemia, unspecified; I48.0 Paroxysmal atrial fibrillation; E11.9 Type 2 diabetes mellitus without complications; G47.30 Sleep apnea, unspecified; I25.2 Old myocardial infarction; E66.01 Morbid (severe) obesity due to excess calories; Z79.82 Long term (current) use of aspirin; Z87.891 Personal history of nicotine dependence; Z95.5 Presence of coronary angioplasty implant and graft; Z79.4 Long term (current) use of insulin; Z68.41 Body mass index [BMI] 40.0-44.9, adult
CPT/HCPCS: 82947; 85347; 93454; 93571; 99152; 99153; C1760; C1769; C1887; C1894; J1644; J2250; J2370; J2405; J3010; J7030; J7050; Q9967

== ENCOUNTER 2020-06-24 21:00 | Emergency (ER) | payer OTHER, MEDICARE ==
[~2020-06-24] VITALS: Ht 167.6 cm; Wt 113.4 kg
[~2020-06-24 21:00] MED LIST changes: +ALPR1 PO; +RANO500T PO
== END 2020-06-24 22:52 | disposition home or self-care (01) ==
LOC: ER 21:00
DX: L76.32 Postprocedural hematoma of skin and subcutaneous tissue following other procedure (principal); Z88.8 Allergy status to other drugs, medicaments and biological substances; Z79.899 Other long term (current) drug therapy
CPT/HCPCS: 99283-25

== ENCOUNTER 2020-07-04 13:55 | Emergency (ER) | payer OTHER, MEDICARE ==
[~2020-07-04] VITALS: Ht 167.6 cm; Wt 113.4 kg
[2020-07-04 14:42] LABS: BASOPHILS ABSOLUTE AUTO 0.05 K/mm3 (0.00-0.23); BASOPHILS PERCENT AUTO 1 % (0-2); EOSINOPHILS ABSOLUTE AUTO 0.16 K/mm3 (0.00-0.68); EOSINOPHILS PERCENT AUTO 2 % (0-6); Hematocrit 43.9 % (37.0-53.0); Hemoglobin 14.4 g/dL (13.5-17.5); IMMATURE GRAN ABSOLUTE AUTO 0.02 K/mm3 (0.00-0.10); IMMATURE GRAN PERCENT AUTO 0 % (0-1); LYMPHOCYTES ABSOLUTE AUTO 1.52 K/mm3 (0.84-5.20); LYMPHOCYTES PERCENT AUTO 19 % (21-46); MONOCYTES ABSOLUTE AUTO 0.61 K/mm3 (0.16-1.47); MONOCYTES PERCENT AUTO 8 % (4-13); Mean Corpuscular HGB 28.1 pg (26.0-34.0); Mean Corpuscular HGB Conc 32.8 g/dL (31.5-36.5); Mean Corpuscular Volume 86 fL (80-100); Mean Platelet Volume 9.6 fL (9.1-12.4); NEUTROPHILS ABSOLUTE AUTO 5.58 K/mm3 (1.96-9.15); NEUTROPHILS PERCENT AUTO 70 % (41-73); Platelet Count 222 K/mm3 (150-400); RDW Coefficient Variation 14.6 % (11.7-14.2); RDW Standard Deviation 45.5 fL (35.1-46.3); Red Blood Cell Count 5.12 M/mm3 (4.30-5.90); White Blood Cell Count 7.94 K/mm3 (4.00-11.30)
[2020-07-04 15:04] LABS: Albumin, Blood 4.2 g/dL (3.4-5.0); Albumin/Globulin Ratio 1.1 (0.8-1.8); Bilirubin, Total 0.7 mg/dL (0.1-1.0); Bun/Creatinine Ratio 14.1 (12.0-20.0); Calcium, Blood 8.8 mg/dL (8.5-10.1); Creatinine, Blood 1.63 mg/dL (0.60-1.20); Globulin, Blood 3.9 g/dL (2.2-4.0); Potassium, Blood 4.8 mmol/L (3.5-5.5); Total Protein, Blood 8.1 g/dL (6.4-8.2)
== END 2020-07-04 17:51 | disposition left against medical advice (07) ==
LOC: ER 13:55
PROVIDERS: Emergency Medicine
DX: R41.0 Disorientation, unspecified (principal); H53.9 Unspecified visual disturbance; Z53.21 Procedure and treatment not carried out due to patient leaving prior to being seen by health care provider
CPT/HCPCS: 36415; 80053; 85025; 93005; 93010

== ENCOUNTER 2020-08-30 17:07 | Emergency (ER) | payer OTHER, MEDICARE ==
[~2020-08-30] VITALS: Ht 165.1 cm; Wt 105.2 kg
[2020-08-30 18:36] LABS: BASOPHILS ABSOLUTE AUTO 0.05 K/mm3 (0.00-0.23); BASOPHILS PERCENT AUTO 1 % (0-2); EOSINOPHILS ABSOLUTE AUTO 0.13 K/mm3 (0.00-0.68); EOSINOPHILS PERCENT AUTO 2 % (0-6); Hematocrit 43.3 % (37.0-53.0); Hemoglobin 14.4 g/dL (13.5-17.5); IMMATURE GRAN ABSOLUTE AUTO 0.02 K/mm3 (0.00-0.10); IMMATURE GRAN PERCENT AUTO 0 % (0-1); LYMPHOCYTES ABSOLUTE AUTO 1.44 K/mm3 (0.84-5.20); LYMPHOCYTES PERCENT AUTO 19 % (21-46); MONOCYTES PERCENT AUTO 8 % (4-13); Mean Corpuscular HGB 28.8 pg (26.0-34.0); Mean Corpuscular HGB Conc 33.3 g/dL (31.5-36.5); Mean Corpuscular Volume 87 fL (80-100); Mean Platelet Volume 9.6 fL (9.1-12.4); NEUTROPHILS PERCENT AUTO 71 % (41-73); Platelet Count 176 K/mm3 (150-400); RDW Coefficient Variation 14.8 % (11.7-14.2); White Blood Cell Count 7.74 K/mm3 (4.00-11.30)
[2020-08-30 18:51] LABS: Alanine Aminotransfer (ALT/SGP 26 U/L (12-78); Albumin, Blood 3.8 g/dL (3.4-5.0); Albumin/Globulin Ratio 1.1 (0.8-1.8); Alk Phos 93 U/L (50-136); Anion Gap 7 mmol/L (6-16); Aspartate Aminotrans (AST/SGOT 18 U/L (12-37); Bilirubin, Total 0.5 mg/dL (0.1-1.0); Blood Urea Nitrogen 20 mg/dL (8-24); Bun/Creatinine Ratio 15.3 (12.0-20.0); CO2, Blood 24 mmol/L (21-32); Chloride, Blood 105 mmol/L (98-108); Creatinine, Blood 1.31 mg/dL (0.60-1.20); Globulin, Blood 3.6 g/dL (2.2-4.0); Glomerular Filtration Rate 60 (60-); Glucose, Blood 284 mg/dL (70-99); Magnesium, Blood 2.2 mg/dL (1.6-2.4); Potassium, Blood 3.8 mmol/L (3.5-5.5); Sodium, Blood 136 mmol/L (136-145); Total Protein, Blood 7.4 g/dL (6.4-8.2); Troponin I <0.015 ng/mL (0.000-0.040)
== END 2020-08-30 22:07 | disposition home or self-care (01) ==
LOC: ER 17:07
PROVIDERS: Student in an Organized Health Care Education/Training Program
DX: R07.9 Chest pain, unspecified (principal); E11.9 Type 2 diabetes mellitus without complications; Z88.8 Allergy status to other drugs, medicaments and biological substances; Z79.82 Long term (current) use of aspirin; Z79.899 Other long term (current) drug therapy; Z87.891 Personal history of nicotine dependence
CPT/HCPCS: 71045; 80053; 83735; 84484; 85025; 93005; 93010; 99285-25

== ENCOUNTER 2021-01-09 05:45 | Emergency (ER) | payer MEDICARE ==
[~2021-01-09] VITALS: Ht 167.6 cm; Wt 105.2 kg
== END 2021-01-09 08:30 | disposition home or self-care (01) ==
LOC: ER 05:45
DX: R04.0 Epistaxis (principal); Z88.8 Allergy status to other drugs, medicaments and biological substances; Z91.048 Other nonmedicinal substance allergy status; Z79.899 Other long term (current) drug therapy; Z79.82 Long term (current) use of aspirin; Z79.4 Long term (current) use of insulin; E11.9 Type 2 diabetes mellitus without complications; I25.10 Atherosclerotic heart disease of native coronary artery without angina pectoris; E78.5 Hyperlipidemia, unspecified; K21.9 Gastro-esophageal reflux disease without esophagitis
CPT/HCPCS: 99283

== ENCOUNTER 2021-03-01 11:54 | Emergency (ER) | payer OTHER ==
[~2021-03-01] VITALS: Ht 167.6 cm; Wt 104.8 kg
[2021-03-01 12:36] LABS: BASOPHILS ABSOLUTE AUTO 0.05 K/mm3 (0.00-0.23); BASOPHILS PERCENT AUTO 1 % (0-2); EOSINOPHILS PERCENT AUTO 2 % (0-6); Hematocrit 46.5 % (37.0-53.0); Hemoglobin 15.5 g/dL (13.5-17.5); IMMATURE GRAN ABSOLUTE AUTO 0.01 K/mm3 (0.00-0.10); IMMATURE GRAN PERCENT AUTO 0 % (0-1); LYMPHOCYTES ABSOLUTE AUTO 1.26 K/mm3 (0.84-5.20); LYMPHOCYTES PERCENT AUTO 24 % (21-46); MONOCYTES ABSOLUTE AUTO 0.48 K/mm3 (0.16-1.47); MONOCYTES PERCENT AUTO 9 % (4-13); Mean Corpuscular HGB 29.3 pg (26.0-34.0); Mean Corpuscular HGB Conc 33.3 g/dL (31.5-36.5); Mean Corpuscular Volume 88 fL (80-100); Mean Platelet Volume 9.4 fL (9.1-12.4); NEUTROPHILS ABSOLUTE AUTO 3.44 K/mm3 (1.96-9.15); NEUTROPHILS PERCENT AUTO 64 % (41-73); Platelet Count 165 K/mm3 (150-400); RDW Coefficient Variation 14.6 % (11.7-14.2); RDW Standard Deviation 46.9 fL (35.1-46.3); Red Blood Cell Count 5.29 M/mm3 (4.30-5.90); White Blood Cell Count 5.34 K/mm3 (4.00-11.30)
[2021-03-01 13:06] LABS: Alanine Aminotransfer (ALT/SGP 53 U/L (12-78); Albumin, Blood 3.8 g/dL (3.4-5.0); Albumin/Globulin Ratio 1.2 (0.8-1.8); Alk Phos 90 U/L (50-136); Anion Gap 7 mmol/L (6-16); Aspartate Aminotrans (AST/SGOT 27 U/L (12-37); Bilirubin, Total 0.4 mg/dL (0.1-1.0); Blood Urea Nitrogen 19 mg/dL (8-24); CO2, Blood 26 mmol/L (21-32); Calcium, Blood 9.5 mg/dL (8.5-10.1); Chloride, Blood 102 mmol/L (98-108); Creatinine, Blood 1.19 mg/dL (0.60-1.20); Globulin, Blood 3.3 g/dL (2.2-4.0); Glomerular Filtration Rate >60 (60-); Glucose, Blood 428 mg/dL (70-99); Potassium, Blood 4.2 mmol/L (3.5-5.5); Sodium, Blood 135 mmol/L (136-145); Total Protein, Blood 7.1 g/dL (6.4-8.2); Troponin I <0.015 ng/mL (0.000-0.040)
[2021-03-01 14:42] LABS: International Normalized Ratio 1.01; Prothrombin Time Results 10.6 Sec (9.7-11.5)
== END 2021-03-01 16:49 | disposition home or self-care (01) ==
LOC: ER 11:54
PROVIDERS: Physician Assistant
DX: I25.10 Atherosclerotic heart disease of native coronary artery without angina pectoris (principal); M62.81 Muscle weakness (generalized); M54.50 Low back pain, unspecified; W22.8XXA Striking against or struck by other objects, initial encounter; E11.9 Type 2 diabetes mellitus without complications; Z87.891 Personal history of nicotine dependence; Z88.8 Allergy status to other drugs, medicaments and biological substances; Z79.899 Other long term (current) drug therapy; Z79.4 Long term (current) use of insulin; Z79.82 Long term (current) use of aspirin
CPT/HCPCS: 70450; 71046; 72100; 80053; 84484; 85025; 85610; 93005; 93010; 99285-25

== ENCOUNTER 2021-03-03 00:47 | Emergency (ER) | payer OTHER ==
[~2021-03-03] VITALS: Ht 167.6 cm; Wt 104.8 kg
== END 2021-03-03 05:23 | disposition home or self-care (01) ==
LOC: ER 00:47
DX: S09.90XA Unspecified injury of head, initial encounter (principal); E11.9 Type 2 diabetes mellitus without complications; Z88.6 Allergy status to analgesic agent; Z91.048 Other nonmedicinal substance allergy status; Z79.82 Long term (current) use of aspirin; Z88.8 Allergy status to other drugs, medicaments and biological substances; Z79.899 Other long term (current) drug therapy; Y04.8XXA Assault by other bodily force, initial encounter
CPT/HCPCS: 70450; 70486; 71046; 99284-25; A9270

== ENCOUNTER 2021-06-12 16:36 | Inpatient (IN) | payer OTHER ==
[~2021-06-12] VITALS: Ht 167.6 cm; Wt 100.0 kg
[2021-06-12] MEDS ORDERED: ELIQUIS5 M2 PO (18:37)
[2021-06-12 18:39] LABS: BASOPHILS ABSOLUTE AUTO 0.05 K/mm3 (0.00-0.23); BASOPHILS PERCENT AUTO 1 % (0-2); EOSINOPHILS ABSOLUTE AUTO 0.12 K/mm3 (0.00-0.68); EOSINOPHILS PERCENT AUTO 2 % (0-6); Hematocrit 47.3 % (37.0-53.0); IMMATURE GRAN ABSOLUTE AUTO 0.02 K/mm3 (0.00-0.10); IMMATURE GRAN PERCENT AUTO 0 % (0-1); LYMPHOCYTES ABSOLUTE AUTO 1.68 K/mm3 (0.84-5.20); LYMPHOCYTES PERCENT AUTO 27 % (21-46); MONOCYTES ABSOLUTE AUTO 0.67 K/mm3 (0.16-1.47); MONOCYTES PERCENT AUTO 11 % (4-13); Mean Corpuscular HGB 29.5 pg (26.0-34.0); Mean Corpuscular HGB Conc 33.8 g/dL (31.5-36.5); Mean Corpuscular Volume 87 fL (80-100); Mean Platelet Volume 9.2 fL (9.1-12.4); NEUTROPHILS ABSOLUTE AUTO 3.63 K/mm3 (1.96-9.15); NEUTROPHILS PERCENT AUTO 59 % (41-73); Platelet Count 160 K/mm3 (150-400); RDW Coefficient Variation 13.8 % (11.7-14.2); RDW Standard Deviation 44.3 fL (35.1-46.3); Red Blood Cell Count 5.43 M/mm3 (4.30-5.90); White Blood Cell Count 6.17 K/mm3 (4.00-11.30)
[2021-06-12] MEDS ORDERED: POLY500 PO (18:39)
[2021-06-12] MEDS ORDERED: CLOP75 PO (18:40)
[2021-06-12] MEDS ORDERED: JARDIANCE25 MG PO (18:41)
[2021-06-12] MEDS ORDERED: FAMO20 PO (18:42)
[2021-06-12] MEDS ORDERED: HUMULIN N100 UNIT/3 SC (18:44)
[2021-06-12] MEDS ORDERED: ISOSORBIDE MONO60 MG PO (18:46)
[2021-06-12] MEDS ORDERED: METF500 PO (18:47)
[2021-06-12] MEDS ORDERED: ALPR.25 PO (18:49)
[2021-06-12 18:55] LABS: Alanine Aminotransfer (ALT/SGP 30 U/L (12-78); Albumin, Blood 4.1 g/dL (3.4-5.0); Albumin/Globulin Ratio 1.2 (0.8-1.8); Alk Phos 83 U/L (50-136); Anion Gap 7 mmol/L (6-16); Aspartate Aminotrans (AST/SGOT 15 U/L (12-37); Bilirubin, Total 0.7 mg/dL (0.1-1.0); Blood Urea Nitrogen 23 mg/dL (8-24); Bun/Creatinine Ratio 20.2 (12.0-20.0); CO2, Blood 24 mmol/L (21-32); Calcium, Blood 8.9 mg/dL (8.5-10.1); Chloride, Blood 104 mmol/L (98-108); Creatinine, Blood 1.14 mg/dL (0.60-1.20); Globulin, Blood 3.3 g/dL (2.2-4.0); Glomerular Filtration Rate >60 (60-); Glucose, Blood 188 mg/dL (70-99); Potassium, Blood 3.8 mmol/L (3.5-5.5); Sodium, Blood 135 mmol/L (136-145); Total Protein, Blood 7.4 g/dL (6.4-8.2)
[2021-06-12] MEDS ORDERED: TRULICITY0.75 MG/01 SC (22:35)
--- NOTE | 2021-06-12 22:50 | NUR ---
TRANSFER NOTE REPORT FROM JAYESH WAYNE RN. PT TO THE FLOOR BY BRIAN AND STANDS TO TRANSFER TO HOSPITAL BED. PT ORIENTED TO ROOM AND UNIT. BED IN LOWEST POSITION. CALL LIGHT IN REACH. PT EDUCATED ON FALL RISK DUE TO BLOOD THINNERS AND INFORMED TO USE CALL LIGHT AT ALL TIMES.
[2021-06-12 23:05] LABS: International Normalized Ratio 1.09; Prothrombin Time Results 11.4 Sec (9.7-11.5)
--- NOTE | 2021-06-13 04:57 | NUR ---
SALESPERSON FLORIST SUPPLIES SUMMARY PT WAS ADMITTED LAST NIGHT FOR UNSTABLE ANGINA. HE HAS BEEN ON A HEPARIN DRIP ALL NIGHT AND A CONSULT WAS CALLED IN TO CARDIOLOGY FOR THIS MORNING. PT INSTRUCTED TO USE CALL LIGHT AT ALL TIMES TO REDUCE CHANCE OF FALLS DUE TO NEEDING CANE AT HOME. PT ALERT AND ORIENTED, COOPERATIVE WITH CARE. PT HAS BEEN NPO AFTER MIDNIGHT. CBG IN THE 180S THIS AM. NO TELE ORDERS. PT HAS NOT HAD ANY EPISODES OF CHEST PAIN THROUGHOUT THE SHIFT AND HAS BEEN SLEEPING ALL NIGHT. CPAP USED AT NIGHT.
[2021-06-13 06:04] LABS: Hematocrit 47.2 % (37.0-53.0); Hemoglobin 15.9 g/dL (13.5-17.5); Mean Corpuscular HGB 29.7 pg (26.0-34.0); Mean Corpuscular HGB Conc 33.7 g/dL (31.5-36.5); Mean Corpuscular Volume 88 fL (80-100); Mean Platelet Volume 9.2 fL (9.1-12.4); Platelet Count 152 K/mm3 (150-400); RDW Coefficient Variation 13.7 % (11.7-14.2); RDW Standard Deviation 44.5 fL (35.1-46.3); Red Blood Cell Count 5.35 M/mm3 (4.30-5.90); White Blood Cell Count 6.03 K/mm3 (4.00-11.30)
[2021-06-13 06:24] LABS: Albumin, Blood 3.7 g/dL (3.4-5.0); Anion Gap 10 mmol/L (6-16); Blood Urea Nitrogen 24 mg/dL (8-24); Bun/Creatinine Ratio 20.7 (12.0-20.0); CO2, Blood 22 mmol/L (21-32); Calcium, Blood 8.7 mg/dL (8.5-10.1); Chloride, Blood 105 mmol/L (98-108); Creatinine, Blood 1.16 mg/dL (0.60-1.20); Glomerular Filtration Rate >60 (60-); Glucose, Blood 183 mg/dL (70-99); Phosphorus, Blood 3.5 mg/dL (2.5-4.9); Potassium, Blood 3.4 mmol/L (3.5-5.5); Sodium, Blood 137 mmol/L (136-145)
[2021-06-13 06:50] LABS: BASOPHILS ABSOLUTE MAN 0.18 K/mm3 (0.00-0.23); BASOPHILS PERCENT MAN 3 % (0-2); EOSINOPHILS ABSOLUTE MAN 0.06 K/mm3 (0.00-0.68); EOSINOPHILS PERCENT MAN 1 % (0-6); LYMPHOCYTES PERCENT MAN 25 % (21-46); MONOCYTES ABSOLUTE MAN 0.54 K/mm3 (0.16-1.47); MONOCYTES PERCENT MAN 9 % (4-13); NEUTROPHILS ABSOLUTE MAN 3.73 K/mm3 (1.96-9.15); SEG NEUTROPHILS PERCENT MAN 62 % (41-73); TOTAL CELLS COUNTED 100
[2021-06-13 07:04] LABS: Cholesterol 271 mg/dL (50-200); HDL Cholesterol 34 mg/dL (>39); LDL/HDL RATIO 5.1; Low Density Lipoprotein Chol 172 mg/dL (0-110); Triglycerides 325 mg/dL (30-160); Very Low Density Lipoprot Chol 65 mg/dL (6-32)
--- NOTE | 2021-06-13 18:15 | NUR ---
PATIENT HAD A BUSY DAY OF TESTING. HE HAD A MYOCARDIO PERFUSION TEST, ECHO DOPPLER, AND CARDIO STRESS TEST. SOME SLIGHT CHANGES WERE SEEN WITH DIASTOLIC FUNCTION, BUT OVERALL, IT APPEARS THAT TESTING IS ALRIGHT. EF WAS 59 % , SINUS RYTHM WITH 1ST DEGREE AV BLOCK WAS SHOWN ON RESTING EKG. NEGATIVE FOR ISCHEMIA PER EKG. DR. REMY WAS PLEASED WITH RESULTS. PATIENT IS RESTING IN BED, FEELING TIRED TONIGHT. HE DID NEED VERY LITTLE SS INSULIN AND STATES THAT HE TAKES ALOT MORE INSULIN AT HOME WHEN SUGARS ARE AT THAT SAME VALUE THEY WERE HERE. HEPARIN IS RUNNING DIRECTED, WITH ONE ADJUSTMENT AND ONE BOLUS TODAY.
--- NOTE | 2021-06-14 01:23 | NUR ---
RECEIVED REPORT AND ASSUMED CARE OF PT. HE IS LYING QUIETLY IN BED WITH HIS EYES CLOSED AND EVEN, UNLABORED RESPIRATIONS. MARSHA.
--- NOTE | 2021-06-14 05:47 | NUR ---
SHIFT SUMMARY: ALHAJI IS A&OX4. VSS, NO ACUTE EVENTS OVERNIGHT. HE IS A STANDBY ASSIST TO THE BATHROOM, USING THE URINAL INDEPENDENTLY. HEPARIN DRIP INFUSING PER PHARMACY ORDER. HE IS TOLERATING PO INTAKE WELL AND DENIES ANY CHEST PAIN OR SOB. HE IS LYING IN BED WITH THE CALL LIGHT IN REACH, CONTINUOUS PULSE OX IN PLACE. WCTM UNTIL REPORT IS GIVEN TO DAY SHIFT RN.
--- NOTE | 2021-06-14 09:43 | NUR ---
HEPARIN STOPPED PER PHARMACY AT 0943. PATIENT WILL BE DISCHARGING TO HOME. HE IS GIVEN A DOSE OF ELIQUIS NOW, HEP WAS DC'D, ALSO PER PHARMACY. TELE ALSO DC AT THIS TIME. PATIENT RUNNING SINUS.
--- NOTE | 2021-06-14 11:54 | NUR ---
PATIENT HAS BEEN DISCHARAGED AT THIS TIME 1154. HIS IV WAS REMOVED AND EDUCATIONAL MATERIAL WAS PROVIDED. PATIENT IS A[facility] THAT [facility]. PATIENT UNDERSTANDS ALL INFOMATION AND KNOWS WHO TO CALL IF QUESTIONS DO ARISE. ASSESSMENT OF THIS PATIENT WAS DONE, BUT WILL BE INTERED INTO EMR A BIT LATER.
== END 2021-06-14 11:54 | disposition home or self-care (01) | DRG 313 ==
LOC: ER 16:36 → MEDS 16:37
PROVIDERS: Internal Medicine Cardiovascular Disease; Student in an Organized Health Care Education/Training Program; ADMIT Family Medicine
DX: R07.9 Chest pain, unspecified (principal); I25.110 Atherosclerotic heart disease of native coronary artery with unstable angina pectoris; E78.5 Hyperlipidemia, unspecified; I10 Essential (primary) hypertension; E66.01 Morbid (severe) obesity due to excess calories; R42 Dizziness and giddiness; I48.0 Paroxysmal atrial fibrillation; E11.40 Type 2 diabetes mellitus with diabetic neuropathy, unspecified; G89.29 Other chronic pain; G47.33 Obstructive sleep apnea (adult) (pediatric); K21.9 Gastro-esophageal reflux disease without esophagitis; F32.A Depression, unspecified; E87.6 Hypokalemia; F41.9 Anxiety disorder, unspecified; N40.0 Benign prostatic hyperplasia without lower urinary tract symptoms; Z91.048 Other nonmedicinal substance allergy status; Z91.09 Other allergy status, other than to drugs and biological substances; Z79.82 Long term (current) use of aspirin; Z79.4 Long term (current) use of insulin; Z79.899 Other long term (current) drug therapy; Z90.49 Acquired absence of other specified parts of digestive tract; Z98.890 Other specified postprocedural states; Z98.1 Arthrodesis status; Z95.1 Presence of aortocoronary bypass graft; Z95.5 Presence of coronary angioplasty implant and graft; Z79.01 Long term (current) use of anticoagulants; Z87.891 Personal history of nicotine dependence; I25.2 Old myocardial infarction
CPT/HCPCS: 36415; 71045; 78452; 80053; 80061; 80069; 82947; 83718; 84484; 85007; 85025; 85027; 85610; 85730; 93005; 93010; 93017; 93306; 94660; 94762; 96372; 99285-25; A9270; A9500; G0378; J1644; J1815; J2785

== ENCOUNTER 2022-05-28 18:35 | Emergency (ER) | payer OTHER ==
[~2022-05-28] VITALS: Ht 167.6 cm; Wt 93.9 kg
[~2022-05-28 18:35] MED LIST changes: +ALPR.25 PO; +CLOP75 PO; +ELIQUIS5 M2 PO; +FAMO20 PO; +HUMULIN N100 UNIT/3 SC; +ISOSORBIDE MONO60 MG PO; +JARDIANCE25 MG PO; +POLY500 PO; +TRULICITY0.75 MG/01 SC
[2022-05-28 20:11] LABS: BASOPHILS ABSOLUTE AUTO 0.04 K/mm3 (0.00-0.23); BASOPHILS PERCENT AUTO 1 % (0-2); EOSINOPHILS ABSOLUTE AUTO 0.09 K/mm3 (0.00-0.68); EOSINOPHILS PERCENT AUTO 2 % (0-6); Hematocrit 45.1 % (37.0-53.0); Hemoglobin 14.9 g/dL (13.5-17.5); IMMATURE GRAN ABSOLUTE AUTO 0.01 K/mm3 (0.00-0.10); IMMATURE GRAN PERCENT AUTO 0 % (0-1); LYMPHOCYTES ABSOLUTE AUTO 0.57 K/mm3 (0.84-5.20); LYMPHOCYTES PERCENT AUTO 9 % (21-46); MONOCYTES ABSOLUTE AUTO 0.52 K/mm3 (0.16-1.47); MONOCYTES PERCENT AUTO 8 % (4-13); Mean Corpuscular HGB 29.8 pg (26.0-34.0); Mean Corpuscular Volume 90 fL (80-100); Mean Platelet Volume 9.3 fL (9.1-12.4); NEUTROPHILS ABSOLUTE AUTO 4.93 K/mm3 (1.96-9.15); NEUTROPHILS PERCENT AUTO 80 % (41-73); Platelet Count 133 K/mm3 (150-400); RDW Coefficient Variation 14.2 % (11.7-14.2); RDW Standard Deviation 46.9 fL (35.1-46.3); White Blood Cell Count 6.16 K/mm3 (4.00-11.30)
[2022-05-28 20:23] LABS: Albumin, Blood 3.8 g/dL (3.4-5.0); Albumin/Globulin Ratio 1.2 (0.8-1.8); Bilirubin, Total 0.6 mg/dL (0.1-1.0); Calcium, Blood 9.3 mg/dL (8.5-10.1); Creatinine, Blood 1.06 mg/dL (0.60-1.20); Globulin, Blood 3.3 g/dL (2.2-4.0); Potassium, Blood 4.2 mmol/L (3.5-5.5); Total Protein, Blood 7.1 g/dL (6.4-8.2)
[2022-05-28] MEDS ORDERED: ONDA4ODT MM (21:46)
[2022-05-28] MEDS ORDERED: AMOCLA875 PO (21:46)
== END 2022-05-28 22:30 | disposition home or self-care (01) ==
LOC: ER 18:35
PROVIDERS: Student in an Organized Health Care Education/Training Program
DX: J40 Bronchitis, not specified as acute or chronic (principal); E11.65 Type 2 diabetes mellitus with hyperglycemia; I25.10 Atherosclerotic heart disease of native coronary artery without angina pectoris; E78.5 Hyperlipidemia, unspecified; G47.33 Obstructive sleep apnea (adult) (pediatric); Z88.8 Allergy status to other drugs, medicaments and biological substances; Z91.048 Other nonmedicinal substance allergy status; Z79.899 Other long term (current) drug therapy; Z79.01 Long term (current) use of anticoagulants; Z79.4 Long term (current) use of insulin
CPT/HCPCS: 71045; 80053; 82947; 83880; 84484; 85025; A9270; J2405; J2550

== ENCOUNTER 2022-05-31 09:00 | Emergency (ER) | payer OTHER ==
[~2022-05-31] VITALS: Ht 167.6 cm; Wt 93.9 kg
[~2022-05-31 09:00] MED LIST changes: +AMOCLA875 PO
[2022-05-31 09:43] LABS: BASOPHILS ABSOLUTE AUTO 0.02 K/mm3 (0.00-0.23); BASOPHILS PERCENT AUTO 1 % (0-2); EOSINOPHILS ABSOLUTE AUTO 0.08 K/mm3 (0.00-0.68); EOSINOPHILS PERCENT AUTO 2 % (0-6); Hematocrit 47.7 % (37.0-53.0); Hemoglobin 15.9 g/dL (13.5-17.5); IMMATURE GRAN ABSOLUTE AUTO 0.01 K/mm3 (0.00-0.10); IMMATURE GRAN PERCENT AUTO 0 % (0-1); LYMPHOCYTES PERCENT AUTO 14 % (21-46); MONOCYTES ABSOLUTE AUTO 0.63 K/mm3 (0.16-1.47); MONOCYTES PERCENT AUTO 15 % (4-13); Mean Corpuscular HGB 29.7 pg (26.0-34.0); Mean Corpuscular HGB Conc 33.3 g/dL (31.5-36.5); Mean Corpuscular Volume 89 fL (80-100); Mean Platelet Volume 9.4 fL (9.1-12.4); NEUTROPHILS ABSOLUTE AUTO 2.97 K/mm3 (1.96-9.15); NEUTROPHILS PERCENT AUTO 69 % (41-73); Platelet Count 107 K/mm3 (150-400); RDW Coefficient Variation 14.2 % (11.7-14.2); RDW Standard Deviation 46.3 fL (35.1-46.3); Red Blood Cell Count 5.35 M/mm3 (4.30-5.90); White Blood Cell Count 4.31 K/mm3 (4.00-11.30)
[2022-05-31 10:03] LABS: Albumin, Blood 3.6 g/dL (3.4-5.0); Albumin/Globulin Ratio 0.9 (0.8-1.8); Bilirubin, Total 0.8 mg/dL (0.1-1.0); Bun/Creatinine Ratio 21.7 (12.0-20.0); Calcium, Blood 8.5 mg/dL (8.5-10.1); Creatinine, Blood 1.06 mg/dL (0.60-1.20); Globulin, Blood 3.8 g/dL (2.2-4.0); Potassium, Blood 4.4 mmol/L (3.5-5.5); Total Protein, Blood 7.4 g/dL (6.4-8.2)
[2022-05-31] MEDS ORDERED: MIRALAX17 GM PO (11:43)
== END 2022-05-31 12:03 | disposition home or self-care (01) ==
LOC: ER 09:00
PROVIDERS: Emergency Medicine
DX: K56.41 Fecal impaction (principal); E11.9 Type 2 diabetes mellitus without complications; I25.10 Atherosclerotic heart disease of native coronary artery without angina pectoris; E78.5 Hyperlipidemia, unspecified; G47.33 Obstructive sleep apnea (adult) (pediatric); K21.9 Gastro-esophageal reflux disease without esophagitis; N40.0 Benign prostatic hyperplasia without lower urinary tract symptoms; Z88.8 Allergy status to other drugs, medicaments and biological substances; Z79.899 Other long term (current) drug therapy; Z79.01 Long term (current) use of anticoagulants; Z79.4 Long term (current) use of insulin
CPT/HCPCS: 36415; 74177; 80053; 85025; 99284-25; A9270; Q9967

== ENCOUNTER → 2022-09-23 | Outpatient (CLI) | payer OTHER ==
[~2022-09-23] MED LIST changes: +MIRALAX17 GM PO
[2022-09-25 13:15] LABS: CRYPTOSPORIDIUM EIA Negative (Negative)
== END ==
LOC: LAB 14:33 → LAB SHORT 14:33
PROVIDERS: Physician Assistant
DX: R19.7 Diarrhea, unspecified (principal)
CPT/HCPCS: 87328; 87329

== ENCOUNTER → 2023-01-20 | Outpatient (CLI) | payer OTHER | END | disposition home or self-care (01) | LOC: LAB SHORT 15:20 → LAB 15:20 | DX: N39.0 Urinary tract infection, site not specified (principal) | CPT/HCPCS: 87086 ==

== ENCOUNTER 2023-07-02 12:52 | Emergency (ER) | payer OTHER ==
[~2023-07-02] VITALS: Ht 167.6 cm; Wt 99.8 kg
[2023-07-02 13:49] LABS: BASOPHILS ABSOLUTE AUTO 0.05 K/mm3 (0.00-0.23); BASOPHILS PERCENT AUTO 1 % (0-2); EOSINOPHILS ABSOLUTE AUTO 0.11 K/mm3 (0.00-0.68); EOSINOPHILS PERCENT AUTO 2 % (0-6); Hematocrit 42.7 % (37.0-53.0); Hemoglobin 14.6 g/dL (13.5-17.5); IMMATURE GRAN ABSOLUTE AUTO 0.01 K/mm3 (0.00-0.10); IMMATURE GRAN PERCENT AUTO 0 % (0-1); LYMPHOCYTES ABSOLUTE AUTO 1.48 K/mm3 (0.84-5.20); LYMPHOCYTES PERCENT AUTO 27 % (21-46); MONOCYTES ABSOLUTE AUTO 0.54 K/mm3 (0.16-1.47); MONOCYTES PERCENT AUTO 10 % (4-13); Mean Corpuscular HGB 30.3 pg (26.0-34.0); Mean Corpuscular HGB Conc 34.2 g/dL (31.5-36.5); Mean Corpuscular Volume 89 fL (80-100); Mean Platelet Volume 9.3 fL (9.1-12.4); NEUTROPHILS ABSOLUTE AUTO 3.36 K/mm3 (1.96-9.15); NEUTROPHILS PERCENT AUTO 61 % (41-73); Platelet Count 145 K/mm3 (150-400); RDW Coefficient Variation 13.6 % (11.7-14.2); RDW Standard Deviation 44.1 fL (35.1-46.3); Red Blood Cell Count 4.82 M/mm3 (4.30-5.90); White Blood Cell Count 5.55 K/mm3 (4.00-11.30)
[2023-07-02] MEDS ORDERED: NS 1,000 ML IV SCH ×2 (13:50→15:40)
[2023-07-02] MEDS ORDERED: NOVOLOG100 UNIT/3 (13:50)
[2023-07-02] MEDS ORDERED: TIZA4 PO (13:51)
[2023-07-02] MEDS ORDERED: GLIP5 (13:56)
[2023-07-02] MEDS ORDERED: METO5A (13:58)
[2023-07-02] MEDS ORDERED: PROSTIN VR500 MCG/3 (13:59)
[2023-07-02] MEDS ORDERED: SODBIC650 PO (13:59)
[2023-07-02] MEDS ORDERED: OMEP20ER PO (14:01)
[2023-07-02] MEDS ORDERED: BASAGLAR K100 UNIT/1 (14:03)
[2023-07-02 14:18] LABS: Albumin, Blood 3.3 g/dL (3.4-5.0); Albumin/Globulin Ratio 1.2 (0.8-1.8); Bilirubin, Total 0.3 mg/dL (0.1-1.0); Bun/Creatinine Ratio 13.4 (12.0-20.0); Calcium, Blood 8.5 mg/dL (8.5-10.1); Creatinine, Blood 1.19 mg/dL (0.60-1.20); Globulin, Blood 2.8 g/dL (2.2-4.0); Total Protein, Blood 6.1 g/dL (6.4-8.2)
[2023-07-02 15:00] VITALS: BP 114/78
== END 2023-07-02 16:57 | disposition home or self-care (01) ==
LOC: ER 12:52
PROVIDERS: Emergency Medicine
DX: R42 Dizziness and giddiness (principal); E11.9 Type 2 diabetes mellitus without complications; E78.5 Hyperlipidemia, unspecified; K21.9 Gastro-esophageal reflux disease without esophagitis; G47.33 Obstructive sleep apnea (adult) (pediatric); Z88.8 Allergy status to other drugs, medicaments and biological substances; Z79.4 Long term (current) use of insulin; Z79.899 Other long term (current) drug therapy
CPT/HCPCS: 71045; 80053; 84484; 85025; 93005; 93010; 96360; 96361; 99285-25; J7030

== ENCOUNTER 2023-09-27 09:06 | Emergency (ER) | payer OTHER ==
[~2023-09-27] VITALS: Ht 167.6 cm; Wt 99.8 kg
[~2023-09-27 09:06] MED LIST changes: +BASAGLAR K100 UNIT/1; +GLIP5; +METO5A; +NOVOLOG100 UNIT/3; +PROSTIN VR500 MCG/3; +SODBIC650 PO; +TIZA4 PO
[2023-09-27] MEDS ORDERED: NS 1,000 ML IV SCH (09:30)
[2023-09-27 09:48] LABS: BASOPHILS ABSOLUTE AUTO 0.07 K/mm3 (0.00-0.23); BASOPHILS PERCENT AUTO 1 % (0-2); EOSINOPHILS ABSOLUTE AUTO 0.13 K/mm3 (0.00-0.68); EOSINOPHILS PERCENT AUTO 2 % (0-6); Hematocrit 45.3 % (37.0-53.0); Hemoglobin 15.1 g/dL (13.5-17.5); IMMATURE GRAN ABSOLUTE AUTO 0.02 K/mm3 (0.00-0.10); IMMATURE GRAN PERCENT AUTO 0 % (0-1); LYMPHOCYTES ABSOLUTE AUTO 1.34 K/mm3 (0.84-5.20); LYMPHOCYTES PERCENT AUTO 17 % (21-46); MONOCYTES ABSOLUTE AUTO 0.58 K/mm3 (0.16-1.47); MONOCYTES PERCENT AUTO 7 % (4-13); Mean Corpuscular HGB 30.3 pg (26.0-34.0); Mean Corpuscular HGB Conc 33.3 g/dL (31.5-36.5); Mean Corpuscular Volume 91 fL (80-100); Mean Platelet Volume 9.3 fL (9.1-12.4); NEUTROPHILS ABSOLUTE AUTO 5.77 K/mm3 (1.96-9.15); NEUTROPHILS PERCENT AUTO 73 % (41-73); Platelet Count 156 K/mm3 (150-400); RDW Coefficient Variation 14.1 % (11.7-14.2); RDW Standard Deviation 47.3 fL (35.1-46.3); Red Blood Cell Count 4.98 M/mm3 (4.30-5.90); White Blood Cell Count 7.91 K/mm3 (4.00-11.30)
[2023-09-27 09:59] LABS: Bun/Creatinine Ratio 15.8 (12.0-20.0); Calcium, Blood 8.6 mg/dL (8.5-10.1); Creatinine, Blood 1.2 mg/dL (0.60-1.20); Magnesium, Blood 1.9 mg/dL (1.6-2.4); Potassium, Blood 4.4 mmol/L (3.5-5.5)
[2023-09-27 11:13] VITALS: BP 108/92
== END 2023-09-27 11:10 | disposition home or self-care (01) ==
LOC: ER 09:06
PROVIDERS: Emergency Medicine
DX: R42 Dizziness and giddiness (principal); E11.65 Type 2 diabetes mellitus with hyperglycemia; Z88.8 Allergy status to other drugs, medicaments and biological substances; Z79.899 Other long term (current) drug therapy; Z79.4 Long term (current) use of insulin; E78.5 Hyperlipidemia, unspecified; G47.30 Sleep apnea, unspecified; K21.9 Gastro-esophageal reflux disease without esophagitis
CPT/HCPCS: 80048; 83735; 85025; J7030

== ENCOUNTER 2023-10-29 09:43 | Emergency (ER) | payer OTHER ==
[~2023-10-29] VITALS: Ht 167.6 cm; Wt 99.8 kg
[~2023-10-29 09:43] MED LIST changes: +ALBU90OI INH; -BASAGLAR K100 UNIT/1; +CYAN500 PO; +EZET10 PO; +MAGNESIUM OXID500 MG PO; +METO50ER PO; +OMEGA-3 FISH O1 EA21 PO; +OZEMPIC2 MG/0.75 SC; +PANCRELIPASE; +PROSTIN VR500 MCG/3 IV; +Vitamin D1000 UNI1 PO; +ZINC15 PO
[2023-10-29] MEDS ORDERED: NS 1,000 ML IV SCH (10:10)
[2023-10-29] MEDS ORDERED: Midodrine 5 MG Tab PO ONE (10:20)
[2023-10-29 10:26] LABS: BASOPHILS ABSOLUTE AUTO 0.07 K/mm3 (0.00-0.23); BASOPHILS PERCENT AUTO 1 % (0-2); EOSINOPHILS ABSOLUTE AUTO 0.13 K/mm3 (0.00-0.68); EOSINOPHILS PERCENT AUTO 2 % (0-6); Hematocrit 42.2 % (37.0-53.0); Hemoglobin 14.5 g/dL (13.5-17.5); IMMATURE GRAN ABSOLUTE AUTO 0.02 K/mm3 (0.00-0.10); IMMATURE GRAN PERCENT AUTO 0 % (0-1); LYMPHOCYTES ABSOLUTE AUTO 1.32 K/mm3 (0.84-5.20); LYMPHOCYTES PERCENT AUTO 24 % (21-46); MONOCYTES ABSOLUTE AUTO 0.53 K/mm3 (0.16-1.47); MONOCYTES PERCENT AUTO 10 % (4-13); Mean Corpuscular HGB 30.7 pg (26.0-34.0); Mean Corpuscular HGB Conc 34.4 g/dL (31.5-36.5); Mean Corpuscular Volume 89 fL (80-100); Mean Platelet Volume 9.2 fL (9.1-12.4); NEUTROPHILS ABSOLUTE AUTO 3.39 K/mm3 (1.96-9.15); NEUTROPHILS PERCENT AUTO 62 % (41-73); Platelet Count 132 K/mm3 (150-400); RDW Coefficient Variation 13.8 % (11.7-14.2); RDW Standard Deviation 45.6 fL (35.1-46.3); Red Blood Cell Count 4.72 M/mm3 (4.30-5.90); White Blood Cell Count 5.46 K/mm3 (4.00-11.30)
[2023-10-29 10:48] LABS: Albumin/Globulin Ratio 1.1 (0.8-1.8); Bilirubin, Total 0.5 mg/dL (0.1-1.0); Bun/Creatinine Ratio 10.5 (12.0-20.0); Calcium, Blood 7.9 mg/dL (8.5-10.1); Creatinine, Blood 1.14 mg/dL (0.60-1.20); Globulin, Blood 2.7 g/dL (2.2-4.0); Magnesium, Blood 1.9 mg/dL (1.6-2.4); Total Protein, Blood 5.7 g/dL (6.4-8.2)
[2023-10-29 12:45] VITALS: BP 114/69
[2023-10-30] MEDS ORDERED: PRED20 PO (13:09)
[2023-10-30] MEDS ORDERED: ALBU90OI INH (13:09)
[2023-10-30] MEDS ORDERED: FLUTICASONE P10.6 GM INH (13:09)
[2023-10-30] MEDS ORDERED: ASMANEX HFA13 G4 INH (15:15)
== END 2023-10-29 13:18 | disposition home or self-care (01) ==
LOC: ER 09:43
PROVIDERS: Student in an Organized Health Care Education/Training Program
DX: I95.9 Hypotension, unspecified (principal); E11.9 Type 2 diabetes mellitus without complications; E78.5 Hyperlipidemia, unspecified; K21.9 Gastro-esophageal reflux disease without esophagitis; G47.33 Obstructive sleep apnea (adult) (pediatric); I48.0 Paroxysmal atrial fibrillation; Z87.891 Personal history of nicotine dependence; Z79.899 Other long term (current) drug therapy; Z79.4 Long term (current) use of insulin; Z88.8 Allergy status to other drugs, medicaments and biological substances; Z91.048 Other nonmedicinal substance allergy status
CPT/HCPCS: 71046; 80053; 83735; 84484; 85025; 93005; 93010; 96360; 99285-25; A9270; J7030

== ENCOUNTER 2023-10-31 11:51 | Emergency (ER) | payer OTHER ==
[~2023-10-31] VITALS: Ht 177.8 cm; Wt 104.3 kg
[~2023-10-31 11:51] MED LIST changes: +ASMANEX HFA13 G4 INH; +FLUTICASONE P10.6 GM INH; +PRED20 PO
[2023-10-31 12:44] LABS: BASOPHILS ABSOLUTE AUTO 0.05 K/mm3 (0.00-0.23); BASOPHILS PERCENT AUTO 1 % (0-2); EOSINOPHILS ABSOLUTE AUTO 0.03 K/mm3 (0.00-0.68); EOSINOPHILS PERCENT AUTO 0 % (0-6); Hemoglobin 14.1 g/dL (13.5-17.5); IMMATURE GRAN ABSOLUTE AUTO 0.03 K/mm3 (0.00-0.10); IMMATURE GRAN PERCENT AUTO 0 % (0-1); LYMPHOCYTES ABSOLUTE AUTO 1.04 K/mm3 (0.84-5.20); LYMPHOCYTES PERCENT AUTO 13 % (21-46); MONOCYTES ABSOLUTE AUTO 0.46 K/mm3 (0.16-1.47); MONOCYTES PERCENT AUTO 6 % (4-13); Mean Corpuscular HGB 30.5 pg (26.0-34.0); Mean Corpuscular HGB Conc 33.6 g/dL (31.5-36.5); Mean Corpuscular Volume 91 fL (80-100); Mean Platelet Volume 9.6 fL (9.1-12.4); NEUTROPHILS ABSOLUTE AUTO 6.18 K/mm3 (1.96-9.15); NEUTROPHILS PERCENT AUTO 79 % (41-73); Platelet Count 151 K/mm3 (150-400); RDW Coefficient Variation 14.5 % (11.7-14.2); RDW Standard Deviation 48.2 fL (35.1-46.3); Red Blood Cell Count 4.63 M/mm3 (4.30-5.90); White Blood Cell Count 7.79 K/mm3 (4.00-11.30)
[2023-10-31 13:03] LABS: Bun/Creatinine Ratio 10.9 (12.0-20.0); Calcium, Blood 8.5 mg/dL (8.5-10.1); Creatinine, Blood 1.1 mg/dL (0.60-1.20); Magnesium, Blood 2.3 mg/dL (1.6-2.4); Potassium, Blood 3.6 mmol/L (3.5-5.5)
[2023-10-31] MEDS ORDERED: NS 1,000 ML IV SCH (14:35)
[2023-10-31] MEDS ORDERED: SUCR1 PO (15:07)
[2023-10-31 15:30] VITALS: BP 114/73
== END 2023-10-31 15:40 | disposition home or self-care (01) ==
LOC: ER 11:51
PROVIDERS: Emergency Medicine
DX: I95.1 Orthostatic hypotension (principal); R42 Dizziness and giddiness; R07.9 Chest pain, unspecified; E11.9 Type 2 diabetes mellitus without complications; E78.5 Hyperlipidemia, unspecified; G47.33 Obstructive sleep apnea (adult) (pediatric); K21.9 Gastro-esophageal reflux disease without esophagitis; I48.0 Paroxysmal atrial fibrillation; Z87.891 Personal history of nicotine dependence; Z79.51 Long term (current) use of inhaled steroids; Z79.4 Long term (current) use of insulin; Z79.52 Long term (current) use of systemic steroids; Z88.8 Allergy status to other drugs, medicaments and biological substances; Z91.048 Other nonmedicinal substance allergy status
CPT/HCPCS: 71045; 80048; 83735; 84484; 85025; 93005; 93010; 96360; 99285-25; J7030

== ENCOUNTER 2023-11-02 09:25 | Emergency (ER) | payer OTHER ==
[~2023-11-02] VITALS: Ht 167.6 cm; Wt 101.6 kg
[~2023-11-02 09:25] MED LIST changes: +SUCR1 PO
[2023-11-02 09:57] LABS: BASOPHILS ABSOLUTE AUTO 0.07 K/mm3 (0.00-0.23); BASOPHILS PERCENT AUTO 1 % (0-2); EOSINOPHILS ABSOLUTE AUTO 0.03 K/mm3 (0.00-0.68); EOSINOPHILS PERCENT AUTO 0 % (0-6); Hematocrit 43.5 % (37.0-53.0); Hemoglobin 14.9 g/dL (13.5-17.5); IMMATURE GRAN ABSOLUTE AUTO 0.03 K/mm3 (0.00-0.10); IMMATURE GRAN PERCENT AUTO 0 % (0-1); LYMPHOCYTES ABSOLUTE AUTO 1.83 K/mm3 (0.84-5.20); LYMPHOCYTES PERCENT AUTO 20 % (21-46); MONOCYTES ABSOLUTE AUTO 0.77 K/mm3 (0.16-1.47); MONOCYTES PERCENT AUTO 9 % (4-13); Mean Corpuscular HGB 30.6 pg (26.0-34.0); Mean Corpuscular HGB Conc 34.3 g/dL (31.5-36.5); Mean Corpuscular Volume 89 fL (80-100); Mean Platelet Volume 9.3 fL (9.1-12.4); NEUTROPHILS ABSOLUTE AUTO 6.37 K/mm3 (1.96-9.15); NEUTROPHILS PERCENT AUTO 70 % (41-73); Platelet Count 160 K/mm3 (150-400); RDW Coefficient Variation 14.5 % (11.7-14.2); RDW Standard Deviation 46.9 fL (35.1-46.3); Red Blood Cell Count 4.87 M/mm3 (4.30-5.90)
[2023-11-02] MEDS ORDERED: NS 1,000 ML IV SCH (10:05)
[2023-11-02 10:17] LABS: Creatinine, Blood 1.19 mg/dL (0.60-1.20); Potassium, Blood 3.8 mmol/L (3.5-5.5)
[2023-11-02] MEDS ORDERED: Calcium Citrate 950 MG Tab PO ONE (10:25)
[2023-11-02 10:45] LABS: Base Excess Venous -4.3 mmol/L; Bicarbonate Venous 21.3 mmol/L (24.0-30.0); PCO2 Venous 35.5 mmHg (38-42); pH Blood Venous 7.38 (7.34-7.37)
[2023-11-02] MEDS ORDERED: LORazepam 2 MG/ML 1ML Injection IV ONE (11:05)
[2023-11-02] MEDS ORDERED: Meclizine HCl 25 MG Tab PO ONE (11:35)
[2023-11-02] MEDS ORDERED: MECL25 PO (12:41)
[2023-11-02 12:55] VITALS: BP 124/84
== END 2023-11-02 13:10 | disposition home or self-care (01) ==
LOC: ER 09:25
PROVIDERS: Emergency Medicine
DX: I95.1 Orthostatic hypotension (principal); E83.51 Hypocalcemia; E11.9 Type 2 diabetes mellitus without complications; E78.5 Hyperlipidemia, unspecified; K21.9 Gastro-esophageal reflux disease without esophagitis; G47.33 Obstructive sleep apnea (adult) (pediatric); Z87.891 Personal history of nicotine dependence; Z79.52 Long term (current) use of systemic steroids; Z79.51 Long term (current) use of inhaled steroids; Z79.4 Long term (current) use of insulin; Z79.899 Other long term (current) drug therapy; Z88.8 Allergy status to other drugs, medicaments and biological substances; Z91.048 Other nonmedicinal substance allergy status
CPT/HCPCS: 71045; 80048; 82010; 82803; 83735; 84484; 85025; 85379; A9270; J2060; J7030

== ENCOUNTER 2024-01-07 19:02 | Emergency (ER) | payer SELFPAY ==
[~2024-01-07] VITALS: Ht 167.6 cm; Wt 101.6 kg
[~2024-01-07 19:02] MED LIST changes: +MECL25 PO
[2024-01-07 19:45] LABS: BASOPHILS ABSOLUTE AUTO 0.06 K/mm3 (0.00-0.23); BASOPHILS PERCENT AUTO 1 % (0-2); EOSINOPHILS ABSOLUTE AUTO 0.15 K/mm3 (0.00-0.68); EOSINOPHILS PERCENT AUTO 3 % (0-6); Hematocrit 40.5 % (37.0-53.0); Hemoglobin 14.1 g/dL (13.5-17.5); IMMATURE GRAN ABSOLUTE AUTO 0.01 K/mm3 (0.00-0.10); IMMATURE GRAN PERCENT AUTO 0 % (0-1); LYMPHOCYTES ABSOLUTE AUTO 1.35 K/mm3 (0.84-5.20); LYMPHOCYTES PERCENT AUTO 22 % (21-46); MONOCYTES ABSOLUTE AUTO 0.62 K/mm3 (0.16-1.47); MONOCYTES PERCENT AUTO 10 % (4-13); Mean Corpuscular HGB 30.8 pg (26.0-34.0); Mean Corpuscular HGB Conc 34.8 g/dL (31.5-36.5); Mean Corpuscular Volume 88 fL (80-100); Mean Platelet Volume 9.1 fL (9.1-12.4); NEUTROPHILS ABSOLUTE AUTO 3.86 K/mm3 (1.96-9.15); NEUTROPHILS PERCENT AUTO 64 % (41-73); Platelet Count 163 K/mm3 (150-400); RDW Coefficient Variation 14.1 % (11.7-14.2); RDW Standard Deviation 45.5 fL (35.1-46.3); Red Blood Cell Count 4.58 M/mm3 (4.30-5.90); White Blood Cell Count 6.05 K/mm3 (4.00-11.30)
[2024-01-07 19:52] LABS: Albumin, Blood 3.6 g/dL (3.4-5.0); Albumin/Globulin Ratio 1.2 (0.8-1.8); Bilirubin, Total 0.4 mg/dL (0.1-1.0); Bun/Creatinine Ratio 10.9 (12.0-20.0); Calcium, Blood 9.1 mg/dL (8.5-10.1); Creatinine, Blood 1.1 mg/dL (0.60-1.20); Globulin, Blood 2.9 g/dL (2.2-4.0); Potassium, Blood 4.2 mmol/L (3.5-5.5); Total Protein, Blood 6.5 g/dL (6.4-8.2)
[2024-01-07 20:05] LABS: D-Dimer, Quantitative <0.19 mg/L FEU (0.00-0.52); International Normalized Ratio 1.04; Prothrombin Time Results 11.1 Sec (9.7-11.5)
[2024-01-07 20:34] VITALS: BP 132/77
== END 2024-01-07 21:47 | disposition home or self-care (01) ==
LOC: ER 19:02
PROVIDERS: Physician Assistant
DX: R41.840 Attention and concentration deficit (principal); R53.83 Other fatigue; E11.9 Type 2 diabetes mellitus without complications; I25.10 Atherosclerotic heart disease of native coronary artery without angina pectoris; I48.0 Paroxysmal atrial fibrillation; E78.5 Hyperlipidemia, unspecified; G47.33 Obstructive sleep apnea (adult) (pediatric); K21.9 Gastro-esophageal reflux disease without esophagitis; N40.0 Benign prostatic hyperplasia without lower urinary tract symptoms; Z86.73 Personal history of transient ischemic attack (TIA), and cerebral infarction without residual deficits; Z87.891 Personal history of nicotine dependence; Z95.5 Presence of coronary angioplasty implant and graft; Z86.718 Personal history of other venous thrombosis and embolism; Z86.711 Personal history of pulmonary embolism; Z88.8 Allergy status to other drugs, medicaments and biological substances; Z91.048 Other nonmedicinal substance allergy status; Z79.01 Long term (current) use of anticoagulants; Z79.4 Long term (current) use of insulin; Z79.52 Long term (current) use of systemic steroids; Z79.51 Long term (current) use of inhaled steroids; Z79.899 Other long term (current) drug therapy
CPT/HCPCS: 80053; 85025; 85379; 85610; 85730; 93005; 93010; 99285-25

== ENCOUNTER 2024-12-30 21:53 | Inpatient (IN) | payer OTHER ==
[~2024-12-30] VITALS: Ht 167.6 cm; Wt 109.0 kg
[~2024-12-30 21:53] MED LIST changes: +CREON DR 12,001 EACH PO; +GLUCOSE4 GM PO; +METO10SY PO; -METO5A; +MIDO5 PO; +NEBI5 PO; -NOVOLOG100 UNIT/3; -PANCRELIPASE; +PRALUENT P150 MG/1 M SC; +TRESIBA FL100 UNIT/2 SC; +VRAYLAR1.5 MG PO; -ZINC15 PO; +[UNRECOGNIZED DRUG - OTHER] PO
[2024-12-30 22:15] LABS: BASOPHILS ABSOLUTE AUTO 0.06 K/mm3 (0.00-0.23); BASOPHILS PERCENT AUTO 1 % (0-2); EOSINOPHILS ABSOLUTE AUTO 0.14 K/mm3 (0.00-0.68); EOSINOPHILS PERCENT AUTO 2 % (0-6); Hematocrit 42.0 % (37.0-53.0); Hemoglobin 14.1 g/dL (13.5-17.5); IMMATURE GRAN ABSOLUTE AUTO 0.02 K/mm3 (0.00-0.10); IMMATURE GRAN PERCENT AUTO 0 % (0-1); LYMPHOCYTES ABSOLUTE AUTO 1.89 K/mm3 (0.84-5.20); LYMPHOCYTES PERCENT AUTO 24 % (21-46); MONOCYTES ABSOLUTE AUTO 0.83 K/mm3 (0.16-1.47); MONOCYTES PERCENT AUTO 11 % (4-13); Mean Corpuscular HGB Conc 33.6 g/dL (31.5-36.5); Mean Corpuscular Volume 87 fL (80-100); NEUTROPHILS ABSOLUTE AUTO 4.87 K/mm3 (1.96-9.15); NEUTROPHILS PERCENT AUTO 62 % (41-73); NRBC ABSOLUTE 0.00 K/mm3 (0.00-0.02); NRBC Auto 0.0 /100 WBC (0.0-0.2); Platelet Count 157 K/mm3 (150-400); RDW Coefficient Variation 14.8 % (11.7-14.2); RDW Standard Deviation 47.1 fL (35.1-46.3)
[2024-12-30 22:31] LABS: Alanine Aminotransfer (ALT/SGP 42.0 U/L (12-78); Albumin, Blood 3.5 g/dL (3.4-5.0); Albumin/Globulin Ratio 1.1 (0.8-1.8); Anion Gap 9.0 mmol/L (3-11); Aspartate Aminotrans (AST/SGOT 36.0 U/L (12-37); Bilirubin, Total 0.4 mg/dL (0.1-1.0); Blood Urea Nitrogen 14.0 mg/dL (8-24); CO2, Blood 25.0 mmol/L (21-32); Calcium, Blood 8.7 mg/dL (8.5-10.1); Chloride, Blood 107.0 mmol/L (98-108); Creatinine, Blood 1.38 mg/dL (0.60-1.20); Globulin, Blood 3.1 g/dL (2.2-4.0); Glucose, Blood 193.0 mg/dL (70-99); Magnesium, Blood 2.1 mg/dL (1.6-2.4); Potassium, Blood 4.2 mmol/L (3.5-5.5); Sodium, Blood 137.0 mmol/L (136-145); Total Protein, Blood 6.6 g/dL (6.4-8.2)
[2024-12-30 22:57] LABS: C-REACTIVE PROTEIN, EXT RANGE 0.84 mg/dL (0.000-0.300)
[2024-12-31] VITALS (7 sets, daily range): BP systolic 131–205; BP diastolic 83–121
[2024-12-31] MEDS ORDERED: Ondansetron HCl 2 MG / ML 2ML Vial IV PRN (01:35)
[2024-12-31] MEDS ORDERED: FLU VACC TS2025-26(6MOS UP)/PF 45 MCG/0.5 ML SYRINGE IM SCH (01:40)
[2024-12-31 02:14] LABS: Anti-Xa UFH, PHA Monitoring <0.10 IU/mL; Prothrombin Time Results 11.3 Sec (9.7-11.5)
[2024-12-31] MEDS ORDERED: Heparin Sodium 5000 Units/ML 1ML MDV IV ONE (02:30)
[2024-12-31] MEDS ORDERED: Heparin Sodium,Porcine/0.5 NS 500 ML IV SCH (02:30)
[2024-12-31 03:04] LABS: BASOPHILS ABSOLUTE AUTO 0.05 K/mm3 (0.00-0.23); BASOPHILS PERCENT AUTO 1 % (0-2); EOSINOPHILS ABSOLUTE AUTO 0.13 K/mm3 (0.00-0.68); EOSINOPHILS PERCENT AUTO 2 % (0-6); Hematocrit 42.2 % (37.0-53.0); Hemoglobin 14.2 g/dL (13.5-17.5); IMMATURE GRAN ABSOLUTE AUTO 0.01 K/mm3 (0.00-0.10); IMMATURE GRAN PERCENT AUTO 0 % (0-1); LYMPHOCYTES ABSOLUTE AUTO 1.93 K/mm3 (0.84-5.20); LYMPHOCYTES PERCENT AUTO 26 % (21-46); MONOCYTES ABSOLUTE AUTO 0.66 K/mm3 (0.16-1.47); MONOCYTES PERCENT AUTO 9 % (4-13); Mean Corpuscular HGB Conc 33.6 g/dL (31.5-36.5); Mean Corpuscular Volume 88 fL (80-100); NEUTROPHILS ABSOLUTE AUTO 4.61 K/mm3 (1.96-9.15); NEUTROPHILS PERCENT AUTO 62 % (41-73); NRBC ABSOLUTE 0.00 K/mm3 (0.00-0.02); NRBC Auto 0.0 /100 WBC (0.0-0.2); Platelet Count 146 K/mm3 (150-400); RDW Coefficient Variation 15.0 % (11.7-14.2); RDW Standard Deviation 47.9 fL (35.1-46.3)
[2024-12-31 03:26] LABS: Alanine Aminotransfer (ALT/SGP 44.0 U/L (12-78); Albumin, Blood 3.4 g/dL (3.4-5.0); Albumin/Globulin Ratio 1.1 (0.8-1.8); Anion Gap 9.0 mmol/L (3-11); Aspartate Aminotrans (AST/SGOT 35.0 U/L (12-37); Bilirubin, Total 0.4 mg/dL (0.1-1.0); Blood Urea Nitrogen 14.0 mg/dL (8-24); CO2, Blood 27.0 mmol/L (21-32); Calcium, Blood 9.0 mg/dL (8.5-10.1); Chloride, Blood 107.0 mmol/L (98-108); Creatinine, Blood 1.28 mg/dL (0.60-1.20); Globulin, Blood 3.1 g/dL (2.2-4.0); Glucose, Blood 176.0 mg/dL (70-99); Magnesium, Blood 2.2 mg/dL (1.6-2.4); Potassium, Blood 3.8 mmol/L (3.5-5.5); Sodium, Blood 139.0 mmol/L (136-145); Total Protein, Blood 6.5 g/dL (6.4-8.2)
--- NOTE | 2024-12-31 04:16 | NUR ---
ARRIVAL TO UNIT REPORT RECEIVED FROM JIM KNIGHT IN ER. PT ARRIVES TO UNIT AT APPROX 0311. HE TRANSFERS SELF FROM [facility] TO HOSPITAL BED. HE IS ALERT AND ORIENTED X4. VERY TALKATIVE AND APPEARS ANXIOUS. REPORTS CHRONIC BACK PAIN AT A 5/10. STATES THAT HE USES TOPICAL THC CREAM AND THIS IS THE ONLY THING THAT WORKS FOR HIM. ALSO REPORTS CHRONIC SHORT TERM MEMORY LOSS AND HAS A DIFFICULT TIME REMEMBERING AT BASELINE. HE STATES HIS CHEST PAIN HAS RESOLVED. REPORTS EXTENSIVE CARDIAC HISTORY AND ATYPICAL SYMPTOMS WHEN EXPERIENCING A CARDIAC EVENT. ON CONTINUOUS CARDIAC TELEMETRY, IN A SINUS RHYTHM 70'S-90'S. UPON ARRIVAL SYSTOLIC BP 200'S, HOWEVER, HAS SINCE DECREASED TO 160'S. 1+ EDEMA IN BLE THAT IS NEW TO HIM. REPORTS USE OF DIURETICS, BUT UNSURE OF WHY HE TAKES THESE. HE IS ON ROOM AIR AND SATS ARE ABOVE 95%. WEARS A CPAP WHILE SLEEPING DUE TO SEVERE SLEEP APNEA. SKIN IS WARM, DRY, AND INTACT. MILD DRYNESS. CONTINENT OF URINE AND STOOL, LAST BM 1 DAY AGO. HE IS RESTING COMFORTABLY IN BED, CALL LIGHT WITHIN REACH, BED IN LOWEST POSITION.
[2024-12-31] MEDS ORDERED: Insulin Regular 100 UNIT/ML 10ML Vial SC SCH (06:00)
--- NOTE | 2024-12-31 06:19 | NUR ---
SHIFT SUMMARY NO ACUTE CHANGES SINCE ADMISSION. SEE PREVIOUS NOTE AND ASSESSMENT. HOLDING INSULIN PT IS NPO AT THIS TIME.
[2024-12-31] MEDS ORDERED: Isosorbide Mononitrate 30 MG TABCR PO SCH (09:00)
[2024-12-31] MEDS ORDERED: Insulin Glargine 100 Unit/ML 3 ML SYR SC ONE (09:00)
[2024-12-31] MEDS ORDERED: INSULIN AS100 UNIT/8 SC (15:11)
[2024-12-31] MEDS ORDERED: MOUNJARO12.5 MG/0. SC (15:14)
[2024-12-31] MEDS ORDERED: NEBI5 PO (15:15)
[2024-12-31] MEDS ORDERED: ASMANEX110 MC3 INH (15:18)
[2024-12-31] MEDS ORDERED: AZELASTINE137 MCG/01 (15:24)
[2024-12-31] MEDS ORDERED: Flecainide Acet50 MG PO (15:25)
[2024-12-31] MEDS ORDERED: FAMO20 PO (15:25)
[2024-12-31] MEDS ORDERED: Flonase 0.05% N16 GM (15:28)
[2024-12-31] MEDS ORDERED: ATROVENT HFA12.9 GM INH (15:31)
[2024-12-31] MEDS ORDERED: Insulin Human Lispro 100 Units/ML 3ML Syringe SC SCH (16:30)
[2024-12-31] MEDS ORDERED: Clarify Drug Order XX ONE (18:30)
--- NOTE | 2024-12-31 19:18 | NUR ---
SHIFT SUMMARY: A/O X4, PLEASANT AND COOPERATIVE WITH CARE, VERY TALKATIVE AND ANXIOUS, PT REPORTS A HOME MED ERROR LEFT HIM WITH SHORT TERM MEMORY LOSS, GETS FRUSTERATED EASILY AND BENEFITS FROM FREQUENT REMINDERS. PT REPORTS MILD CHEST PAIN THIS MORNING THAT PT REPORTS HAS NOW RESOLVED, HEPARIN RUNNING PER ORDER, 1ST HALF OF STRESS TEST COMPLETED THIS AFTERNOON, 2ND HALF TO BE COMPLETED TOMORROW (01/01), NPO AFTER MIDNIGHT EXCEPT FOR WATER AND NO CAFFEINE. PT REPORTS BEING NONCOMPLIANT WITH CPAP AT HOME BUT IS AGREEABLE TO USE HOSPITAL CPAP WHILE HERE, PT COMPLAINS OF FEELING SUFFOCATED BY CPAP MASK, RT CAME TO BEDSIDE AND PROVIDED A MOUTH ONLY MASK FOR PT TO TRY TONIGHT. PT EDUCATED ON CPAP USE AND DIABETIC MANAGEMENT. PT ORIENTED TO CALL LIGHT AND STATES NO OTHER NEEDS AT THIS TIME.
[2025-01-01 03:28] VITALS: BP 136/81
[2025-01-01 04:04] LABS: BASOPHILS ABSOLUTE AUTO 0.09 K/mm3 (0.00-0.23); BASOPHILS PERCENT AUTO 1 % (0-2); EOSINOPHILS ABSOLUTE AUTO 0.12 K/mm3 (0.00-0.68); EOSINOPHILS PERCENT AUTO 2 % (0-6); Hematocrit 43.2 % (37.0-53.0); Hemoglobin 14.7 g/dL (13.5-17.5); IMMATURE GRAN ABSOLUTE AUTO 0.02 K/mm3 (0.00-0.10); IMMATURE GRAN PERCENT AUTO 0 % (0-1); LYMPHOCYTES ABSOLUTE AUTO 1.87 K/mm3 (0.84-5.20); LYMPHOCYTES PERCENT AUTO 23 % (21-46); MONOCYTES ABSOLUTE AUTO 0.76 K/mm3 (0.16-1.47); MONOCYTES PERCENT AUTO 10 % (4-13); Mean Corpuscular HGB Conc 34.0 g/dL (31.5-36.5); Mean Corpuscular Volume 87 fL (80-100); NEUTROPHILS ABSOLUTE AUTO 5.17 K/mm3 (1.96-9.15); NEUTROPHILS PERCENT AUTO 64 % (41-73); NRBC ABSOLUTE 0.00 K/mm3 (0.00-0.02); NRBC Auto 0.0 /100 WBC (0.0-0.2); Platelet Count 148 K/mm3 (150-400); RDW Coefficient Variation 15.0 % (11.7-14.2); RDW Standard Deviation 47.7 fL (35.1-46.3)
[2025-01-01] MEDS ORDERED: Dose Adjust by Pharmacy XX STA (04:39)
--- NOTE | 2025-01-01 05:16 | NUR ---
SHIFT SUMMARY: NO SIGNIFICANT CHANGES DURING THIS SHIFT. PATIENT IS A&OX4, IS FORGETFUL OF THE PLAN OF CARE AT TIMES BUT IS EASILY REORIENTED. PREASSEMBLER AND INSPECTOR NOTIFIED THIS NURSE THAT THE PATIENTS RHYTHM CHANGED FROM SINUS TO AFIB AROUND 2300 YESTERDAY. PATIENT DENIES FEELING CHEST PALPATATIONS THROUGHOUT THE NIGHT. PATIENT IS ABLE TO MAKE HIS NEEDS KNOWN AND CALLS APPROPRIATELY. PATIENT HAS DENIED CHEST PAIN OR PRESSURE THROUGHOUT SHIFT. HEPARIN GTT CONTINUES TO RUN AT 25.2 ML/HR PER PHARMACY ORDERS. PATIENT HAS BEEN NPO SINCE MIDNIGHT FOR STRESS TEST LATER TODAY. PATIENT CURRENTLY LAYING IN BED WITH CPAP IN PLACE AND >90% SPO2, AND CALL LIGHT WITHIN REACH.
[2025-01-01 08:28] VITALS: BP 148/84
[2025-01-01] MEDS ORDERED: Insulin Glargine 100 Unit/ML 3 ML SYR SC SCH (09:49)
[2025-01-01] MEDS ORDERED: Insulin Glargine-Yfgn 100 Unit/mL 3 ML SYR SC SCH (10:00)
[2025-01-01] MEDS ORDERED: Insulin Human Lispro 100 Units/ML 3ML Syringe SC SCH (11:30)
[2025-01-01 12:27] VITALS: BP 153/77
[2025-01-01] MEDS ORDERED: Mag Hydrox/Al Hydrox/Simeth 18 ML,Lidocaine 2% Viscous Soln 9 ML,Atropine/Scopalam/Hyos... PO ONE (13:25)
--- NOTE | 2025-01-01 17:06 | NUR ---
SHIFT SUMMARY/ DISCHARGE NOTE: PT A&OX4. FOLLOWS COMMANDS AND MAKES NEEDS KNOWN TO STAFF. PT GOT UP TO THE BATHROOM WITH SBA. NO COMPLAINTS WITH ACTIVITY. PT REPORTED A COUPLE "ZAPS" TO HIS EPIGASTRIC REGION THAT LASTED ABOUT 15 SECONDS AFTER EATING LUNCH THAT WAS RESOLVED WITH A GI COCKTAIL. DENIES ANY OTHER COMPLAINTS OF CP, PRESSURE, TIGHTNESS OR SOB. NO SIGNIFICANT EVENTS HAPPENED DURING THIS SHIFT. SON AT BEDSIDE AT DISCHARGE TO TAKE PT HOME. THIS RN WENT OVER DISCHARGE INSTRUCTIONS AND MEDS WITH PT. ALL QUESTIONS AND CONCERNS WERE ADDRESSED. BELONGINGS COLLECTED AND TAKEN HOME WITH PT. PT DC'D VIA WHEELCHAIR BY DULCE MARIA.
== END 2025-01-01 17:00 | disposition home or self-care (01) | DRG 281 ==
LOC: ER 21:53 → PCU 12-31 01:33
PROVIDERS: Student in an Organized Health Care Education/Training Program; ADMIT Student in an Organized Health Care Education/Training Program
PROC: 5A09357 Assistance with Respiratory Ventilation, Less than 24 Consecutive Hours, Continuous Positive Airway Pressure (ICD-10-PCS; principal; 2024-12-31)
DX: I21.4 Non-ST elevation (NSTEMI) myocardial infarction (principal); Z68.41 Body mass index [BMI] 40.0-44.9, adult; E66.9 Obesity, unspecified; I25.10 Atherosclerotic heart disease of native coronary artery without angina pectoris; I48.0 Paroxysmal atrial fibrillation; E78.5 Hyperlipidemia, unspecified; I10 Essential (primary) hypertension; G47.33 Obstructive sleep apnea (adult) (pediatric); E11.9 Type 2 diabetes mellitus without complications; K21.9 Gastro-esophageal reflux disease without esophagitis; N40.0 Benign prostatic hyperplasia without lower urinary tract symptoms; G89.4 Chronic pain syndrome; Z95.5 Presence of coronary angioplasty implant and graft; I25.2 Old myocardial infarction; Z88.8 Allergy status to other drugs, medicaments and biological substances; Z79.01 Long term (current) use of anticoagulants; Z79.84 Long term (current) use of oral hypoglycemic drugs; Z79.4 Long term (current) use of insulin; Z79.85 Long-term (current) use of injectable non-insulin antidiabetic drugs; Z79.51 Long term (current) use of inhaled steroids; Z86.718 Personal history of other venous thrombosis and embolism; Z86.711 Personal history of pulmonary embolism; Z87.891 Personal history of nicotine dependence; Z98.1 Arthrodesis status
CPT/HCPCS: 36415; 71046; 78452; 80053; 82947; 83036; 83735; 84484; 85025; 85379; 85520; 85610; 85651; 85730; 86140; 86141; 93005; 93010; 93017; 94660; 94762; 99285-25; A9270; A9500; J0706; J1644; J1815; J2785